=== PATIENT | female | born 1990 | race Caucasian/White ===

== ENCOUNTER 2018-06-19 15:55 | Emergency (ER) | payer OTHER, SELFPAY ==
[2018-06-19 16:13] VITALS: BP 140/82; PULSE 108; RESP 16; TEMP 36.9; O2SAT 100; BMI 33.2
[2018-06-19 17:07] LABS: Influenza A and B by PCR Rapid Negative (Negative)
--- NOTE | 2018-06-19 17:19 | ED_ITS ---
HPI - Headache <KELLY Perez - Last Filed: 06/19/18 21:45> General Chief Complaint: Headache Stated Complaint: Nausea and Vomiting x2 days,Migraine Time Seen by Provider: 06/19/18 17:10 Source: patient Mode of arrival: ambulatory Limitations: no limitations History of Present Illness HPI Narrative: 27-year-old female with history of migraine headaches as an everyday smoker here for complaint of headache she reports she has had for last several years as chronic. She reports having a exacerbated headache over the past several days after trying a new medication that was prescribed for her for her headache. She denies any head trauma. No fevers or chills. Positive nausea. No vomiting. She is tolerating p.o. intake well. She has photophobia. She states this is typical for her migraine headache. No for a. No other concerns or complaints. MD Complaint: headache and migraine Related Data Home Medications Medication Instructions Recorded Confirmed gabapentin 300 mg capsule 300 mg PO TID 06/16/18 06/16/18 oxycodone 5 mg capsule 5 mg PO Q4-6H PRN 06/16/18 06/16/18 Previous Rx's Medication Instructions Recorded Disabled Parking Permit u #1 06/12/16 norethindrone ac-eth estradiol 1 tab PO Q DAY #3 pac 06/11/17 [Loestrin 1.5/30 (21)] beclomethasone dipropionate [Qvar] 2 puff INH BID #1 inh 07/26/17 fremanezumab-vfrm 225 mg/1.5 mL 225 mg SUBCUT QMONTH #1.5 ml 06/16/18 subcutaneous syringe ondansetron 4 mg PO BID-TID PRN #15 tab 06/19/18 Allergies Allergy/AdvReac Type Severity Reaction Status Date / Time buspirone [BUSPIRONE] Allergy Mild RASH ON Verified 06/19/18 16:13 FACE lamotrigine [LAMOTRIGINE] Allergy Mild RASH ON Verified 06/19/18 16:13 FACE morphine [MORPHINE] Allergy Mild HIVES,ITCHI Verified 06/19/18 16:13 NG bupropion [From WELLBUTRIN] Allergy Unknown Verified 06/19/18 16:13 hydrocodone [HYDROCODONE] AdvReac Unknown ABD PAIN Verified 06/19/18 16:13 Review of Systems <KELLY Perez - Last Filed: 06/19/18 21:45> Constitutional Denies chills, Denies fever(s), Denies lethargy and Denies weakness Eyes Denies change in vision, Denies eye discharge, Denies irritation and Denies loss of vision ENT Ears, Nose, Mouth, and Throat: Denies change in voice, Denies neck pain and Denies sore throat Cardiovascular Denies chest pain, Denies irregular heart rhythm, Denies lightheadedness, Denies palpitations, Denies dyspnea, Denies dyspnea on exertion and Denies orthopnea Respiratory Denies cough, Denies dyspnea, Denies dyspnea on exertion and Denies wheezing Gastrointestinal Gastrointestinal: Denies abdominal pain, Denies change in bowel habits, Denies diarrhea, Denies nausea and Denies vomiting Genitourinary Denies hematuria, Denies flank pain, Denies urinary incontinence and Denies urinary urgency Musculoskeletal Denies neck pain Integumentary/Breasts Denies pruritus, Denies erythema, Denies rash and Denies wounds Neurologic Denies confusion, Denies loss of vision and Denies weakness Comments: Migraine headache Psychiatric Denies anxiety, Denies confusion, Denies depression, Denies homicidal ideation and Denies suicidal ideation Endocrine Denies palpitations Hematologic/Lymphatic Denies easy bruising Allergic/Immunologic Denies wheezing PFSH <KELLY Perez - Last Filed: 06/19/18 21:45> Medical History ADHD (attention deficit hyperactivity disorder) (Chronic) Bipolar disorder (Chronic) Migraines (Chronic) Neck pain on right side (Chronic 2010) PTSD (post-traumatic stress disorder) (Chronic) Shoulder pain (Chronic 2010) Closed head injury with concussion (Resolved 2015) Pseudoseizures (Resolved 2012) Substance abuse (Resolved) Family History Mother MS (multiple sclerosis) Social History Smoking Status: Current every day smoker Family History Mother MS (multiple sclerosis) Social History Smoking Status: Current every day smoker Exam <KELLY Perez - Last Filed: 06/19/18 21:45> Initial Vital Signs Initial Vital Signs: Vital Signs Temperature 98.5 F 06/19/18 16:13 Pulse Rate 108 H 06/19/18 16:13 Respiratory Rate 16 06/19/18 16:13 Blood Pressure 140/82 06/19/18 16:13 Pulse Oximetry 100 06/19/18 16:13 Const General: cooperative and well developed Nutritional Appearance: well nourished Orientation: alert, awake, oriented x3 and not confused HENMT Head: normal to inspection and normocephalic Mouth: oral mucosae normal and moist mucous membranes Eyes General: appearance normal, both eyes and all related structures Eyelids: eyelids normal Conjunctivae: conjunctivae normal Sclera: sclerae normal Pupils: PERRL EOM: EOM intact bilaterally Neck Neck: normal visual inspection, trachea midline, No lymphadenopathy, No midline deformity and No JVD Lymphatic: No lymphedema Resp Effort & Inspection: normal respiratory effort, able to speak in complete se ntences, no respiratory distress and no use of accessory muscles Auscultation: clear to auscultation bilaterally, no rales, no rhonchi and no wheezes Cardio Rate: regular rate Rhythm: regular rhythm Heart Sounds: no click, no gallops, no murmurs and no rubs Pulses: normal peripheral pulses <Cash Leiva DO - Last Filed: 06/20/18 20:21> Initial Vital Signs Initial Vital Signs: Vital Signs Temperature 98.5 F 06/19/18 16:13 Pulse Rate 108 H 06/19/18 16:13 Respiratory Rate 16 06/19/18 16:13 Blood Pressure 140/82 06/19/18 16:13 Pulse Oximetry 100 06/19/18 16:13 Course <KELLY Perez - Last Filed: 06/19/18 21:45> Orders Ordered: Discontinued Medications Diphenhydramine HCl (Benadryl) 25 mg IV NOW ONE Stop: 06/19/18 17:27 Last Admin: 06/19/18 17:41 Dose: 25 mg Hydromorphone HCl (Dilaudid) 1 mg IV NOW ONE Stop: 06/19/18 17:27 Last Admin: 06/19/18 17:41 Dose: 1 mg Prochlorperazine (Compazine) 10 mg IV NOW ONE Stop: 06/19/18 17:27 Last Admin: 06/19/18 17:41 Dose: 10 mg Vital Signs - 8 hr 06/19/18 16:13 06/19/18 18:28 Temperature 98.5 F 97.7 F Pulse Rate 108 H 95 H Respiratory Rate 16 18 Blood Pressure 140/82 Blood Pressure [Left Arm] 131/76 Pulse Oximetry 100 100 <Cash Leiva DO - Last Filed: 06/20/18 20:21> Orders Ordered: Discontinued Medications Diphenhydramine HCl (Benadryl) 25 mg IV NOW ONE Stop: 06/19/18 17:27 Last Admin: 06/19/18 17:41 Dose: 25 mg Hydromorphone HCl (Dilaudid) 1 mg IV NOW ONE Stop: 06/19/18 17:27 Last Admin: 06/19/18 17:41 Dose: 1 mg Prochlorperazine (Compazine) 10 mg IV NOW ONE Stop: 06/19/18 17:27 Last Admin: 06/19/18 17:41 Dose: 10 mg Vital Signs - 8 hr 06/19/18 16:13 06/19/18 18:28 Temperature 98.5 F 97.7 F Pulse Rate 108 H 95 H Respiratory Rate 16 18 Blood Pressure 140/82 Blood Pressure [Left Arm] 131/76 Pulse Oximetry 100 100 MDM - Headache <KELLY Perez - Last Filed: 06/19/18 21:45> Lab Data Lab Results 06/19/18 Range/Units 16:17 Influenza A & B (PCR) Negative (Negative) MDM Narrative Medical decision making narrative: Signs and symptoms presents as a migraine headache for her. She states that the normal cocktail for her is Compazine Benadryl and Dilaudid. She states that Toradol does not work for her. She was given this cocktail and it reduced her headache. She is he released home to quiet environment for plenty of fluids and rest. Follow up with primary care provider and pain clinic for re-evaluation. She requests refill of some Zofran as well this is given. For any worsening symptoms return emergency room. <Cash Leiva DO - Last Filed: 06/20/18 20:21> Lab Data Lab Results 06/19/18 Range/Units 16:17 Influenza A & B (PCR) Negative (Negative) Discharge Plan Departure Patient Disposition: Home Clinical Impression: Migraine Discharge Date/Time: 06/19/18 18:45 Interventions: ED Discharge Assessment Last Done: 06/19/18 18:43 Instructions: DI for Migraine Activity Restrictions/Additional Instructions: Signs and symptoms presents as exacerbation of migraine headache. Headache is now better after medications. Home to quiet environment plenty of fluids. The refill is Zofran as prescribed use as needed for any nausea. Follow up with primary care provider. Follow up with pain clinic for any worsening symptoms return to the emergency room. Prescriptions: New ondansetron 4 mg tablet,disintegrating 4 mg PO BID-TID PRN (Reason: nausea and vomiting) Qty: 15 RF: 0 No Action Disabled Parking Permit Qty: 1 RF: 0 norethindrone ac-eth estradiol [Loestrin 1.5/30 (21)] 1.5 MG/30 MCG tablet 1 tab PO Q DAY Qty: 3 RF: 4 beclomethasone dipropionate [Qvar] 40 MCG/PUFF aerosol 2 puff INH BID Qty: 1 RF: 0 gabapentin 300 mg capsule 300 mg PO TID RF: 0 oxycodone 5 mg capsule 5 mg PO Q4-6H PRNRF: 0 Ajovy 225 mg/1.5 mL syringe 225 mg SUBCUT QMONTH Qty: 1.5 RF: 11 Referrals: Valeri Jenkins MD [Primary Care Provider] - Stand Alone Forms: Work Release Note <Cash Leiva DO - Last Filed: 06/20/18 20:21> Cosign ED Attending Marielyature Attestation: I was available for consultation during this patient's emergency department encounter
[2018-06-19] MEDS: HYDROMORPHONE 1 MG INJ IV (17:41)
[2018-06-19] MEDS: diphenhydrAMINE 50 MG/ML VIAL 25 MG IV (17:41)
[2018-06-19] MEDS: PROCHLORPERAZINE 10 MG/2 ML VIAL IV (17:41)
[2018-06-19 18:28] VITALS: BP 131/76; PULSE 95; RESP 18; TEMP 36.5; O2SAT 100
== END 2018-06-19 18:45 | disposition home or self-care (01) ==
PROVIDERS: Emergency Medicine; Emergency Provider Nurse Practitioner Family; PCP Family Medicine
DX: G43.909 Migraine, unspecified, not intractable, without status migrainosus (principal)
CPT/HCPCS: 87400; 96374; 96375; 99282; 99284; J0780; J1170; J1200

== ENCOUNTER 2018-07-16 15:12 | Emergency (ER) | payer OTHER, SELFPAY ==
[2018-07-16 15:18] VITALS: BP 140/76; PULSE 105; RESP 20; TEMP 36.4; O2SAT 100; BMI 34.0
--- NOTE | 2018-07-16 16:44 | ED_ITS ---
HPI - Headache General Chief Complaint: Headache Stated Complaint: MIGRAINE HEADACHE FOR 11 DAYS Time Seen by Provider: 07/16/18 16:20 Source: patient Mode of arrival: ambulatory Limitations: no limitations History of Present Illness HPI Narrative: Patient presents the emergency department complaining of right- sided headache, nausea, and vomiting for the last 11 days. Patient denies fevers. She does state that she had flu like illness and a cold that lasted until about 5 days ago, and states that she believes this triggered her migraine. Patient has a longstanding history of migraines, and sees a specialist for this. She states that she saw her doctor several days ago and was given an injection of something like Imitrex, but this did not help. Patient denies any recent head injuries. She states that the symptoms are consistent with prior migraines, and that there is nothing different this time, other than the symptoms have been more difficult to get rid of. Related Data Home Medications Medication Instructions Recorded Confirmed gabapentin 300 mg capsule 300 mg PO TID 06/16/18 07/14/18 oxycodone 5 mg capsule 5 mg PO Q4-6H PRN 06/16/18 07/14/18 Previous Rx's Medication Instructions Recorded Disabled Parking Permit u #1 06/12/16 norethindrone ac-eth estradiol 1 tab PO Q DAY #3 pac 06/11/17 [Loestrin 1.5/30 (21)] beclomethasone dipropionate [Qvar] 2 puff INH BID #1 inh 07/26/17 fremanezumab-vfrm 225 mg/1.5 mL 225 mg SUBCUT QMONTH #1.5 ml 06/16/18 subcutaneous syringe ondansetron 4 mg PO BID-TID PRN #15 tab 06/19/18 ondansetron 4 mg disintegrating 4 mg PO .COMPLEX PRN 1 Days #30 tab 07/14/18 tablet sumatriptan 100 mg tablet 100 mg PO ONCE #10 tab 07/14/18 verapamil 40 mg tablet 40 mg PO ONCE #90 tab 07/14/18 Allergies Allergy/AdvReac Type Severity Reaction Status Date / Time buspirone [BUSPIRONE] Allergy Mild RASH ON Verified 07/14/18 16:03 FACE lamotrigine [LAMOTRIGINE] Allergy Mild RASH ON Verified 07/14/18 16:03 FACE morphine [MORPHINE] Allergy Mild HIVES,ITCHI Verified 07/14/18 16:03 NG bupropion [From WELLBUTRIN] Allergy Unknown Verified 07/14/18 16:03 hydrocodone [HYDROCODONE] AdvReac Unknown ABD PAIN Verified 07/14/18 16:03 Review of Systems Constitutional Denies chills, Denies fever(s), Reports headache(s), Denies lethargy and Denies weakness Eyes Denies change in vision, Denies eye discharge, Denies irritation, Denies loss of vision and Reports photophobia ENT Ears, Nose, Mouth, and Throat: Denies change in voice, Reports headache(s), Denies neck pain and Denies sore throat Cardiovascular Denies chest pain, Denies irregular heart rhythm, Denies lightheadedness, Denies palpitations, Denies dyspnea, Denies dyspnea on exertion and Denies orthopnea Respiratory Denies cough, Denies dyspnea, Denies dyspnea on exertion and Denies wheezing Gastrointestinal Gastrointestinal: Denies abdominal pain, Denies change in bowel habits, Denies diarrhea, Reports nausea and Reports vomiting Genitourinary Denies hematuria, Denies flank pain, Denies urinary incontinence and Denies urinary urgency Musculoskeletal Denies neck pain Integumentary/Breasts Denies pruritus, Denies erythema, Denies rash and Denies wounds Neurologic Denies confusion, Reports headache(s), Denies loss of vision and Denies weakness Psychiatric Denies anxiety, Denies confusion, Denies depression, Denies homicidal ideation and Denies suicidal ideation Endocrine Denies palpitations Hematologic/Lymphatic Denies easy bruising Allergic/Immunologic Denies wheezing [facility] Medical History Migraines (Chronic) ADHD (attention deficit hyperactivity disorder) (Chronic) Bipolar disorder (Chronic) Neck pain on right side (Chronic 2010) PTSD (post-traumatic stress disorder) (Chronic) Shoulder pain (Chronic 2010) Closed head injury with concussion (Resolved 2015) Pseudoseizures (Resolved 2012) Substance abuse (Resolved) Family History (Updated 12/23/17 @ 08:36 by Tracey Thomas) Mother MS (multiple sclerosis) Social History Smoking Status: Current every day smoker Family History Mother MS (multiple sclerosis) Social History Smoking Status: Current every day smoker Exam Initial Vital Signs Initial Vital Signs: Vital Signs Temperature 97.6 F 07/16/18 15:18 Pulse Rate 105 H 07/16/18 15:18 Respiratory Rate 20 07/16/18 15:18 Blood Pressure 140/76 07/16/18 15:18 Pulse Oximetry 100 07/16/18 15:18 Const General: cooperative and well developed Nutritional Appearance: well nourished Orientation: alert, awake, oriented x3 and not confused Other: Patient is sitting on the stretcher, wearing sunglasses. HENVT Head: normocephalic and atraumatic Ears: external ears normal Nose: external nose normal and No nasal discharge Face and sinus: face symmetric and No dry mucous membranes Mouth: oral mucosae normal and moist mucous membranes Teeth and gingiva: dentition normal Eyes General: appearance normal, both eyes and all related structures Eyelids: eyelids normal Conjunctivae: conjunctivae normal Sclera: sclerae normal Pupils: PERRL EOM: EOM intact bilaterally Neck Neck: normal visual inspection, trachea midline, No lymphadenopathy, No midline deformity and No JVD Lymphatic: No lymphedema Chest Chest: normal inspection of the chest Resp Effort & Inspection: normal respiratory effort, able to speak in complete sentences, no respiratory distress and no use of accessory muscles Auscultation: clear to auscultation bilaterally, no rales, no rhonchi and no wheezes Cardio Rate: regular rate Rhythm: regular rhythm Heart Sounds: no click, no gallops, no murmurs and no rubs Pulses: normal peripheral pulses GI Inspection: non-distended Palpation: soft, no hepatosplenomegaly, No guarding, No pulsatile mass and No tender Auscultation: normal bowel sounds Back/Spine/Pelvis Back: No CVA tenderness Cervical Spine: cervical ROM normal and No pain with cervical ROM Thoracic/Lumbar Spine: thoracic and lumbar spine normal to inspection Skin General: no rashes or lesions noted, No jaundice and No petechiae Neuro General: alert, oriented x3, gait normal and no focal motor deficits Speech: speech normal Extrem General: full ROM, no clubbing, cyanosis or edema, no pedal edema and no calf tenderness Psych Appearance: well kempt Mental Status: mental status grossly normal Attitude: cooperative Thought Content: normal and suicidality Judgment: judgment good Course Course Narrative: Patient was treated symptomatically with IV fluids, Compazine, Benadryl, and Toradol. Patient stated that this had not really helped her pain, and that she usually requires Dilaudid when she has this bad of an exacerbation. Patient was given Dilaudid in the emergency department which did improve her symptoms. The patient did not have any symptoms that were concerning for a worse pathology underlying, and she had stated that her current symptoms were consistent with prior migraines. As such, I did not feel any further workup was indicated in the emergency department. We have discussed the usual indications for return, as well as symptomatic management for home. Patient is also advised to follow up with her migraine specialist. Orders Ordered: Discontinued Medications Diphenhydramine HCl (Benadryl) 12.5 mg IV NOW ONE Stop: 07/16/18 16:34 Last Admin: 07/16/18 16:50 Dose: 12.5 mg Hydromorphone HCl (Dilaudid) 1 mg IV NOW ONE Stop: 07/16/18 18:00 Last Admin: 07/16/18 18:26 Dose: 1 mg Sodium Chloride (Normal Saline 0.9%) 1,000 mls @ 1,000 mls/hr IV BOLUS ONE Stop: 07/16/18 17:32 Last Infusion: 07/16/18 18:28 Dose: 0 mls/hr Admin: 07/16/18 16:50 Dose: 1,000 mls/hr Ketorolac Tromethamine (Toradol) 30 mg IV NOW ONE Stop: 07/16/18 16:34 Last Admin: 07/16/18 16:46 Dose: 30 mg Prochlorperazine (Compazine) 10 mg IV NOW ONE Stop: 07/16/18 16:34 Last Admin: 07/16/18 16:46 Dose: 10 mg Vital Signs - 8 hr 07/16/18 15:18 07/16/18 16:46 07/16/18 18:29 Temperature 97.6 F Pulse Rate 105 H 86 77 Respiratory Rate 20 16 Blood Pressure 140/76 137/90 Blood Pressure [Left Arm] 133/79 Pulse Oximetry 100 99 MDM - Headache Medical Records Attestation: I reviewed the patient's medical records. Discharge Plan Departure Patient Disposition: Home Clinical Impression: Migraine Qualifiers: Migraine type: unspecified Status migrainosus presence: without status migrainosus Intractability: not intractable Qualified Code(s): G43.909 - Migraine, unspecified, not intractable, without status migrainosus Instructions: DI for Migraine Prescriptions: No Action Disabled Parking Permit Qty: 1 RF: 0 norethindrone ac-eth estradiol [Loestrin 1.5/30 (21)] 1.5 MG/30 MCG tablet 1 tab PO Q DAY Qty: 3 RF: 4 beclomethasone dipropionate [Qvar] 40 MCG/PUFF aerosol 2 puff INH BID Qty: 1 RF: 0 ondansetron 4 mg tablet,disintegrating 4 mg PO BID-TID PRN (Reason: nausea and vomiting) Qty: 15 RF: 0 gabapentin 300 mg capsule 300 mg PO TID RF: 0 oxycodone 5 mg capsule 5 mg PO Q4-6H PRNRF: 0 Ajovy 225 mg/1.5 mL syringe 225 mg SUBCUT QMONTH Qty: 1.5 RF: 11 ondansetron 4 mg tablet,disintegrating 4 mg PO .COMPLEX PRN (Reason: nausea and vomiting) 1 Days Qty: 30 RF: 2 verapamil 40 mg tablet 40 mg PO ONCE Qty: 90 RF: 2 sumatriptan succinate 100 mg tablet 100 mg PO ONCE Qty: 10 RF: 1 Referrals: Valeri Jenkins MD [Primary Care Provider] -
[2018-07-16 16:46] VITALS: BP 137/90; PULSE 86
[2018-07-16] MEDS: PROCHLORPERAZINE 10 MG/2 ML VIAL IV (16:46)
[2018-07-16] MEDS: KETOROLAC 60 MG/2 ML VIAL 30 MG IV (16:46)
[2018-07-16] MEDS: diphenhydrAMINE 50 MG/ML VIAL 12.5 MG IV (16:50)
[2018-07-16] MEDS: SODIUM CHLORIDE 0.9% 1,000 ML 1000 ML IV (16:50)
[2018-07-16] MEDS: HYDROMORPHONE 1 MG INJ IV ×2 (18:26→18:59)
[2018-07-16 18:29] VITALS: BP 133/79; PULSE 77; RESP 16; O2SAT 99
[2018-07-16 19:06] VITALS: BP 135/81
== END 2018-07-16 19:20 | disposition home or self-care (01) ==
PROVIDERS: Emergency Provider Emergency Medicine; Family Provider Family Medicine; PCP Family Medicine; Referring Provider Family Medicine
DX: G43.909 Migraine, unspecified, not intractable, without status migrainosus (principal); R11.2 Nausea with vomiting, unspecified
CPT/HCPCS: 36591; 96361; 96374; 96375; 96376; 99283; 99284; J0780; J1170; J1200; J1885

== ENCOUNTER → 2018-07-22 19:12 | Outpatient (CLI) | payer OTHER, SELFPAY ==
--- NOTE | 2018-07-22 19:14 | DI.MRI.S_ITS ---
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 TECHNIQUE: Noncontrast axial T1 spin echo, axial T2 fast spin echo, sagittal and axial FLAIR, coronal T2 fast spin echo, axial gradient echo, axial diffusion and ADC through the brain. COMPARISON: None. FINDINGS: Image quality: Excellent. CSF Spaces: Basal cisterns are patent. No extra-axial fluid collections. Ventricles are normal in size and shape. Brain: No intracranial masses or hemorrhage. Gauthier/white matter interface is normal. Brainstem appears normal. Diffusion-weighted images demonstrate no acute ischemic insult. No chronic ischemic insults. Normal intravascular flow voids are present. Skull and face: Calvarium has normal marrow signal. Orbits appear normal. Sinuses: Sinuses and mastoids are abnormal with mild mucosal thickening involving the sphenoid sinus and moderate to moderately severe mucosal thickening involving the maxillary sinuses bilaterally and to a slightly lesser degree the ethmoid air cells and the frontal sinuses, right greater than left. IMPRESSION: No benign parenchymal abnormality seen, no vascular abnormality found. Pansinusitis as discussed without air-fluid level. Dictated by: Efra Anders M.D. on 07/23/2018 at 8:07 Approved by: Efra Anders M.D. on 07/23/2018 at 8:08
== END ==
PROVIDERS: Family Provider Family Medicine; PCP Family Medicine; Visit Provider Family Medicine
DX: G43.709 Chronic migraine without aura, not intractable, without status migrainosus (principal); J32.4 Chronic pansinusitis
CPT/HCPCS: 70551

== ENCOUNTER → 2018-07-23 10:01 | Oncology outpatient (ONC) | payer OTHER, SELFPAY ==
[2018-07-23 11:03] VITALS: BP 108/69; PULSE 90; RESP 16; TEMP 36.6; O2SAT 99
[2018-07-23] MEDS: ONDANSETRON 8 MG in SODIUM CHLORIDE 0.9% 50 ML 216 ML IV (11:33)
[2018-07-23] MEDS: VALPROIC ACID IV (12:05)
[2018-07-23] MEDS: [UNRECOGNIZED DRUG - OTHER] IV (12:05)
[2018-07-23] MEDS: DIHYDROERGOTAMINE IV (12:05)
[2018-07-23] MEDS: MAGNESIUM SULFATE IV (12:05)
== END ==
PROVIDERS: Family Provider Family Medicine; PCP Family Medicine; Visit Provider Family Medicine
DX: G43.711 Chronic migraine without aura, intractable, with status migrainosus (principal); E86.9 Volume depletion, unspecified; R11.2 Nausea with vomiting, unspecified
CPT/HCPCS: 96365; 96366; 96375; J1110; J2405; J3475

== ENCOUNTER 2018-08-14 20:52 | Emergency (ER) | payer OTHER, SELFPAY ==
[2018-08-14 21:16] VITALS: BP 146/105; PULSE 100; RESP 20; TEMP 36.6; O2SAT 100; BMI 34.0
--- NOTE | 2018-08-14 22:58 | ED_ITS ---
HPI - Headache General Chief Complaint: Headache Stated Complaint: DAY 47 OF MIGRAINE Time Seen by Provider: 08/14/18 21:53 Source: patient and family Mode of arrival: ambulatory Limitations: no limitations History of Present Illness HPI Narrative: 27F daily smoker with severe history of migraines presents with a chronic migraine on day 47. She is under the care of local headache physicians and has received Imitrex and various other medications. Her pain is persistent and there is even talk about possible admission but her headache specialist is currently out of town. She denies any fever chills. She has had no injuries. She is not dizzy or weak or lightheaded. She denies numbness, tingling or weakness. Her headache is global and worsened by bright lights and loud noise. MD Complaint: headache and migraine Onset (ago): week(s) Onset description: gradual Location: diffuse Severity: moderate Quality: aching and throbbing Relieving factors: nothing Exacerbating factors: light and noise Associated symptoms: none Related Data Previous Rx's Medication Instructions Recorded norethindrone ac-eth estradiol 1 tab PO Q DAY #3 pac 06/11/17 [Loestrin 1.5/30 (21)] beclomethasone dipropionate [Qvar] 2 puff INH BID #1 inh 07/26/17 fremanezumab-vfrm 225 mg/1.5 mL 225 mg SUBCUT QMONTH #1.5 ml 06/16/18 subcutaneous syringe ondansetron 4 mg PO BID-TID PRN #15 tab 06/19/18 oxycodone 5 mg tablet,oral ONLY 5 mg PO Q6H PRN #30 each 07/29/18 (not feeding tubes) prednisone 10 mg tablet 10 mg PO DAILY #40 tab 07/29/18 sumatriptan 100 mg tablet 100 mg PO ONCE #20 tab 07/29/18 sumatriptan 6 mg/0.5 mL 6 mg SUBCUT ONCE #2.5 ml 07/29/18 subcutaneous solution Allergies Allergy/AdvReac Type Severity Reaction Status Date / Time buspirone [BUSPIRONE] Allergy Mild RASH ON Verified 08/06/18 14:41 FACE lamotrigine [LAMOTRIGINE] Allergy Mild RASH ON Verified 08/06/18 14:41 FACE morphine [MORPHINE] Allergy Mild HIVES,ITCHI Verified 08/06/18 14:41 NG bupropion [From WELLBUTRIN] Allergy Unknown Verified 08/06/18 14:41 hydrocodone [HYDROCODONE] AdvReac Unknown ABD PAIN Verified 08/06/18 14:41 Review of Systems Review of Systems ROS Unobtainable: All systems reviewed & are unremarkable except as noted in HPI and below Constitutional Denies chills, Denies fever(s), Reports headache(s), Denies lethargy and Denies weakness Eyes Denies change in vision, Denies eye discharge, Denies irritation and Denies loss of vision ENT Ears, Nose, Mouth, and Throat: Denies change in voice, Reports headache(s), Denies neck pain and Denies sore throat Cardiovascular Denies chest pain, Denies irregular heart rhythm, Denies lightheadedness, Denies palpitations, Denies dyspnea, Denies dyspnea on exertion and Denies orthopnea Respiratory Denies cough, Denies dyspnea, Denies dyspnea on exertion and Denies wheezing Gastrointestinal Gastrointestinal: Denies abdominal pain, Denies change in bowel habits, Denies diarrhea, Denies nausea and Denies vomiting Genitourinary Denies hematuria, Denies flank pain, Denies urinary incontinence and Denies urinary urgency Musculoskeletal Denies neck pain Integumentary/Breasts Denies pruritus, Denies erythema, Denies rash and Denies wounds Neurologic Denies confusion, Reports headache(s), Denies loss of vision and Denies weakness Psychiatric Denies anxiety, Denies confusion, Denies depression, Denies homicidal ideation and Denies suicidal ideation Endocrine Denies palpitations Hematologic/Lymphatic Denies easy bruising Allergic/Immunologic Denies wheezing [facility] Medical History ADHD (attention deficit hyperactivity disorder) (Chronic) Bipolar disorder (Chronic) Migraines (Chronic) Neck pain on right side (Chronic 2010) PTSD (post-traumatic stress disorder) (Chronic) Shoulder pain (Chronic 2010) Closed head injury with concussion (Resolved 2015) Pseudoseizures (Resolved 2012) Substance abuse (Resolved) Family History Mother MS (multiple sclerosis) Social History Smoking Status: Current every day smoker Family History Mother MS (multiple sclerosis) Social History Smoking Status: Current every day smoker Exam Narrative Exam Narrative: GENERAL: 27-year-old female obviously uncomfortable, resting in a dark room HEAD: Atraumatic. Normocephalic. No temporal or scalp tenderness. EYES: Pupils equal round and reactive. Extraocular motions intact. No scleral icterus. No injection or drainage. ENT: Nose without bleeding, purulent drainage or septal hematoma. Throat without erythema, tonsillar hypertrophy or exudate. Uvula midline. Airway patent. NECK: Trachea midline. No JVD or lymphadenopathy. Supple, nontender, no meningeal signs. CARDIOVASCULAR: Regular rate and rhythm without murmurs, gallops, or rubs. RESPIRATORY: Clear to auscultation. Breath sounds equal bilaterally. No wheezes, rales, or rhonchi. GASTROINTESTINAL: Abdomen soft, non-tender, nondistended. No hepato- splenomegaly, or palpable masses. No guarding. EXTREMITIES: No clubbing, cyanosis, or edema. No joint tenderness, effusion, or edema noted. BACK: Nontender without deformity or crepitance. No flank tenderness. NEURO: AOx3. SKIN: No rash or erythema. Initial Vital Signs Initial Vital Signs: Vital Signs Temperature 98 F 08/14/18 21:16 Pulse Rate 100 H 08/14/18 21:16 Respiratory Rate 20 08/14/18 21:16 Blood Pressure 146/105 H 08/14/18 21:16 Pulse Oximetry 100 08/14/18 21:16 Course Orders Ordered: Discontinued Medications Diphenhydramine HCl (Benadryl) 25 mg IV NOW ONE Stop: 08/14/18 23:41 Last Admin: 08/14/18 23:47 Dose: 25 mg Hydromorphone HCl (Dilaudid) 1 mg IV NOW ONE Stop: 08/14/18 23:41 Last Admin: 08/14/18 23:48 Dose: 1 mg Prochlorperazine (Compazine) 10 mg IV NOW ONE Stop: 08/14/18 23:41 Last Admin: 08/14/18 23:48 Dose: 10 mg Reevaluation(s) Reevaluation #1: Patient feels much better after the above-stated therapies and is requesting discharge Vital Signs - 8 hr 08/15/18 00:20 Temperature 98.4 F Pulse Rate 82 Respiratory Rate 17 Blood Pressure 132/80 Pulse Oximetry 100 Discharge Plan Departure Patient Disposition: Home Clinical Impression: Migraine Qualifiers: Migraine type: unspecified Status migrainosus presence: without status migrainosus Intractability: not intractable Qualified Code(s): G43.909 - Migraine, unspecified, not intractable, without status migrainosus Discharge Date/Time: 08/15/18 00:22 Interventions: ED Discharge Assessment Last Done: 08/15/18 00:20 Instructions: DI for Headache Activity Restrictions/Additional Instructions: *You have been diagnosed with [migraine headache] *What to do: * continue to take medications as directed *Follow up with your primary care provider in 2-3 days, call for an appointment. Let them know you were seen in the Emergency Department and that we ask that you be seen in follow up *Return to ER if you should have any new, worsening or concerning symptoms Prescriptions: No Action norethindrone ac-eth estradiol [Loestrin .09/11 ()] 1.5 MG/30 MCG tablet 1 tab PO Q DAY Qty: 3 RF: 4 beclomethasone dipropionate [Qvar] 40 MCG/PUFF aerosol 2 puff INH BID Qty: 1 RF: 0 ondansetron 4 mg tablet,disintegrating 4 mg PO BID-TID PRN (Reason: nausea and vomiting) Qty: 15 RF: 0 Ajovy 225 mg/1.5 mL syringe 225 mg SUBCUT QMONTH Qty: 1.5 RF: 11 sumatriptan succinate 100 mg tablet 100 mg PO ONCE Qty: 20 RF: 1 prednisone 10 mg tablet 10 mg PO DAILY Qty: 40 RF: 0 oxycodone 5 mg tablet, oral only 5 mg PO Q6H PRN (Reason: pain) Qty: 30 RF: 0 sumatriptan succinate 6 mg/0.5 mL solution 6 mg SUBCUT ONCE Qty: 2.5 RF: 1 Referrals: Valeri Jenkins MD [Primary Care Provider] -
[2018-08-14 23:09] VITALS: BP 138/83; PULSE 84; RESP 17; O2SAT 100
[2018-08-14] MEDS: diphenhydrAMINE 50 MG/ML VIAL 25 MG IV (23:47)
[2018-08-14] MEDS: HYDROMORPHONE 1 MG INJ IV (23:48)
[2018-08-14] MEDS: PROCHLORPERAZINE 10 MG/2 ML VIAL IV (23:48)
[2018-08-15 00:20] VITALS: BP 132/80; PULSE 82; RESP 17; TEMP 36.9; O2SAT 100
== END 2018-08-15 00:22 | disposition home or self-care (01) ==
PROVIDERS: Emergency Provider Emergency Medicine; Family Provider Family Medicine; PCP Family Medicine
DX: G43.909 Migraine, unspecified, not intractable, without status migrainosus (principal)
CPT/HCPCS: 96374; 96375; 99282; 99284; J0780; J1170; J1200

== ENCOUNTER 2018-08-21 12:03 | Emergency (ER) | payer OTHER, SELFPAY ==
[2018-08-21 12:13] VITALS: BP 136/81; PULSE 118; RESP 18; TEMP 36.4; O2SAT 100
--- NOTE | 2018-08-21 12:22 | ED.HA ---
HPI - Headache General Chief Complaint: Headache Stated Complaint: blacked out yesterday, migraines Time Seen by Provider: 08/21/18 12:11 Source: patient and family Mode of arrival: ambulatory Limitations: no limitations History of Present Illness HPI Narrative: 27-year-old female nonsmoker with chronic migraines presents with ongoing trouble. She was seen and evaluated a few days ago and given IV fluids Dilaudid and Compazine and had improvement to the point of requesting discharge. She continues to headaches and has been unable to reach her local headache specialist whom is out of town. She denies any injury nor fever or chills. She has no focal neurologic findings. She has been continuing to take her medications as directed. She is admittedly losing sleep, fatigued very stressed about the situation. Yesterday during a particularly bad episode she had a near syncopal moment with complete resolution. She had prodromal findings and could feel herself getting lightheaded. MD Complaint: headache Onset (ago): day(s) Onset description: gradual Location: diffuse Severity: severe Quality: aching, throbbing and worst headache of life Relieving factors: nothing Exacerbating factors: light and noise Associated symptoms: near syncope Treatments prior to arrival: migraine medication Related Data Home Medications Medication Instructions Recorded Confirmed beclomethasone dipropionate [Qvar 1 puff INHALATION Q12H PRN 08/21/18 08/21/18 RediHaler] ondansetron 4 mg PO BID 08/21/18 08/21/18 sumatriptan succinate 100 mg PO DAILY 08/21/18 08/21/18 verapamil 80 mg PO DAILY 08/21/18 08/21/18 Previous Rx's Medication Instructions Recorded fremanezumab-vfrm 225 mg/1.5 mL 225 mg SUBCUT QMONTH #1.5 ml 06/16/18 subcutaneous syringe oxycodone 5 mg PO Q4-6H PRN #10 tab 08/21/18 Allergies Allergy/AdvReac Type Severity Reaction Status Date / Time buspirone [BUSPIRONE] Allergy Mild RASH ON Verified 08/06/18 14:41 FACE lamotrigine [LAMOTRIGINE] Allergy Mild RASH ON Verified 08/06/18 14:41 FACE morphine [MORPHINE] Allergy Mild HIVES,ITCHI Verified 08/06/18 14:41 NG bupropion [From WELLBUTRIN] Allergy Unknown Verified 08/06/18 14:41 hydrocodone [HYDROCODONE] AdvReac Unknown ABD PAIN Verified 08/06/18 14:41 Review of Systems Constitutional Denies chills, Denies fever(s), Reports headache(s), Denies lethargy and Denies weakness Eyes Denies change in vision, Denies eye discharge, Denies irritation and Denies loss of vision ENT Ears, Nose, Mouth, and Throat: Denies change in voice, Reports headache(s), Denies neck pain and Denies sore throat Cardiovascular Denies chest pain, Denies irregular heart rhythm, Reports lightheadedness, Denies palpitations, Denies dyspnea, Denies dyspnea on exertion and Denies orthopnea Respiratory Denies cough, Denies dyspnea, Denies dyspnea on exertion and Denies wheezing Gastrointestinal Gastrointestinal: Denies abdominal pain, Denies change in bowel habits, Denies diarrhea, Denies nausea and Denies vomiting Genitourinary Denies hematuria, Denies flank pain, Denies urinary incontinence and Denies urinary urgency Musculoskeletal Denies neck pain Integumentary/Breasts Denies pruritus, Denies erythema, Denies rash and Denies wounds Neurologic Denies confusion, Reports headache(s), Denies loss of vision and Denies weakness Psychiatric Denies anxiety, Denies confusion, Denies depression, Denies homicidal ideation and Denies suicidal ideation Endocrine Denies palpitations Hematologic/Lymphatic Denies easy bruising Allergic/Immunologic Denies wheezing [facility] Medical History ADHD (attention deficit hyperactivity disorder) (Chronic) Bipolar disorder (Chronic) Migraines (Chronic) Neck pain on right side (Chronic 2010) PTSD (post-traumatic stress disorder) (Chronic) Shoulder pain (Chronic 2010) Closed head injury with concussion (Resolved 2015) Pseudoseizures (Resolved 2012) Substance abuse (Resolved) Family History Mother MS (multiple sclerosis) Social History Smoking Status: Current every day smoker Family History Mother MS (multiple sclerosis) Social History Smoking Status: Current every day smoker Exam Narrative Exam Narrative: GENERAL: 27-year-old female obviously uncomfortable, sitting in a dark room rubbing her temples HEAD: Atraumatic. Normocephalic. No temporal or scalp tenderness. EYES: Pupils equal round and reactive. Extraocular motions intact. No scleral icterus. No injection or drainage. ENT: Nose without bleeding, purulent drainage or septal hematoma. Throat without erythema, tonsillar hypertrophy or exudate. Uvula midline. Airway patent. NECK: Trachea midline. No JVD or lymphadenopathy. Supple, nontender, no meningeal signs. CARDIOVASCULAR: Regular rate and rhythm without murmurs, gallops, or rubs. RESPIRATORY: Clear to auscultation. Breath sounds equal bilaterally. No wheezes, rales, or rhonchi. GASTROINTESTINAL: Abdomen soft, non-tender, nondistended. No hepato-splenomegaly, or palpable masses. No guarding. EXTREMITIES: No clubbing, cyanosis, or edema. No joint tenderness, effusion, or edema noted. BACK: Nontender without deformity or crepitance. No flank tenderness. NEURO: AOx3. SKIN: No rash or erythema. NIH Stroke Scale 1a. LOC: Patient is alert and keenly responsive (0) 1b. LOC Questions: Patient answers both LOC questions accurately (0) 1c. LOC Commands: Patient performs both tasks correctly (0) 2. Best Gaze: Normal (0) 3. Visual: No visual loss (0) 4. Facial palsy: Normal symmetrical movements (0) 5. Motor arm: No drift (0) 6. Motor leg: No drift (0) 7. Limb ataxia: Absent (0) 8. Sensory: Normal (0) 9. Best language: No aphasia; normal (0) 10. Dysarthria: Normal (0) 11. Extinction and inattention: No abnormality (0) NIHSS: 0 Initial Vital Signs Initial Vital Signs: Vital Signs Temperature 97.6 F 08/21/18 12:13 Pulse Rate 118 H 08/21/18 12:13 Respiratory Rate 18 08/21/18 12:13 Blood Pressure 136/81 08/21/18 12:13 Pulse Oximetry 100 08/21/18 12:13 Course Orders Ordered: ED Orders 08/21/18 12:29 EKG-12 Lead Routine 08/21/18 12:35 Basic Metabolic Panel Stat Complete Blood Count AUTO DIFF Stat Prolactin Stat 08/21/18 12:38 CT head/brain wo con Stat Discontinued Medications Dexamethasone (Decadron) 10 mg IV NOW ONE Stop: 08/21/18 12:30 Last Admin: 08/21/18 12:48 Dose: 10 mg Hydromorphone HCl (Dilaudid) 1 mg IV NOW ONE Stop: 08/21/18 12:30 Last Admin: 08/21/18 12:48 Dose: 1 mg Hydromorphone HCl (Dilaudid) 1 mg IV NOW ONE Stop: 08/21/18 13:54 Last Admin: 08/21/18 14:00 Dose: 1 mg Sodium Chloride (Normal Saline 0.9%) 1,000 mls @ 1,000 mls/hr IV BOLUS ONE Stop: 08/21/18 13:28 Last Infusion: 08/21/18 14:11 Dose: 0 mls/hr Admin: 08/21/18 12:48 Dose: 1,000 mls/hr Ondansetron HCl (Zofran) 4 mg IV NOW ONE Stop: 08/21/18 12:30 Last Admin: 08/21/18 12:48 Dose: 4 mg Reevaluation(s) Reevaluation #1: Patient is feeling significant improvement over the above-stated complaints with Dilaudid and Zofran. Vital Signs - 8 hr 08/21/18 12:13 08/21/18 14:12 Temperature 97.6 F Pulse Rate 118 H 89 Respiratory Rate 18 16 Blood Pressure 136/81 123/71 Pulse Oximetry 100 99 MDM - Headache Lab Data Result diagrams: 08/21/18 12:35 08/21/18 12:35 Lab Results 08/21/18 08/21/18 Range/Units 12:35 12:35 WBC 10.6 (4.5-11.0) X10^3/uL RBC 3.59 L (4.0-5.2) X10^6/uL Hgb 11.0 L (12.0-16.0) g/dL Hct 33.5 L (36-46) % MCV 93.3 (80-100) fL MCH 30.5 (26-34) PG MCHC 32.7 (30-36) % RDW 15.6 H (11.6-14.8) % Plt Count 225 (150-400) X10^3/uL Neut % (Auto) 67.0 (50-75) % Lymph % (Auto) 25.4 (25-40) % Toole % (Auto) 5.5 (3-14) % Eos % (Auto) 1.5 L (2-4) % Baso % (Auto) 0.6 (0-2) % Neut # (Auto) 7100 H (6951-0121) /uL Lymph # (Auto) 2700 (9874-4537) /uL Toole # (Auto) 600 (0-900) /uL Eos # (Auto) 200 (0-450) /uL Baso # (Auto) 100 (0-100) /uL Sodium 140 (137-145) mmol/L Potassium 3.8 (3.4-5.1) mmol/L Chloride 108 H (98-107) mmol/L Carbon Dioxide 25 (22-32) mmol/L BUN 10 (7-17) mg/dL Creatinine 0.60 (0.52-1.04) mg/dL Estimated GFR > 60.0 (>60) mL/min BUN/Creatinine Ratio 16.7 (6-22) Glucose 74 (70-100) mg/dL Calcium 8.7 (8.4-10.2) mg/dL Prolactin 34.9 H (3.0-18.6) ng/mL Imaging Data CT scan - head: Radiologist's impression: Chart Viewer Diagnostics DATE TYPE STATUS AUTHOR Hx 08/21/18 12:38 Freedom Brandon 07/22/18 19:14 Efra Anders 04/28/18 00:00 [facility] - US Pelvic & CT Pelvic 04/25/18 09:05 [facility], Abdomen US 12/24/17 09:00 [facility], US pelvis 10/27/17 14:38 Xray - Chest 2 View 09/11/17 10:42 [facility], Cervical Spine XR Anastasiya Vizcarra 1990 [facility] ER, ED.LOC - Main ED 113.852kg Headache Search Chart RASH ON FACE RASH ON FACE HIVES,ITCHING ABD PAIN ONSET 09/10/13 09/10/13 Today 14:12 Anastasiya Vizcarar 27 F [address] [address] [address] Scan Report Signed Patient: Anastasiya Vizcarra [facility]#: [id number] : 1990Acct:[id number] Age/Sex: 27 / FDate of Service: 08/21/18 Loc: ED Accession Number: [id number] Procedure: CT head/brain wo con Ordering Provider: Nathaniel Tristan D.O. PROCEDURE: CT HEAD/BRAIN WO CON INDICATIONS: worst headache, syncope TECHNIQUE: Noncontrast 4.5 mm thick angled axial sections acquired from the foramen magnum to the vertex, with coronal and sagittal reformats. For radiation dose reduction, the following was used: automated exposure control, adjustment of mA and/or kV according to patient size. COMPARISON: [facility], CT, CT HEAD WITHOUT CONTRAST, 09/24/2017, 15:31. [facility], CT, HEAD WITHOUT CONTRAST, 07/21/2016, 12:24. [facility], CT, HEAD WITHOUT CONTRAST, 05/10/2016, 12:48. [facility], CT, HEAD WITHOUT CONTRAST, 08/19/2015, 10:21. FINDINGS: Image quality: Excellent. CSF spaces: Basal cisterns are patent. No extra-axial fluid collections. Ventricles are normal in size and shape. Cavum septum hernia is present. Brain: No midline shift. No intracranial masses or hemorrhage. Gauthier-white matter interface is normal. Skull and face: Calvarium and visualized facial bones are intact, without suspicious lesions. Sinuses: Visualized sinuses and mastoids are clear. IMPRESSION: No acute process. Dictated by: Freedom Brandon M.D. on 08/21/2018 at 13:38 Approved by: Freedom Brandon M.D. on 08/21/2018 at 13:[address] [facility] Narrative Medical decision making narrative: 27-year-old female with chronic headaches has had greater than 50 days in a row headache. She has seen her specialist on multiple occasions and now been to the emergency department twice this week. Imaging is unremarkable as is her neurologic exam. She has appointments coming up earlier in the week period with a lengthy discussion about how we can best try to help her symptoms and keep her out of the emergency department and agreed to write a short prescription of oxycodone as she has been given this in the past. She understands this is not a typical approach to the management of chronic headaches and that we are unlikely to fill another prescription under these circumstances. Multiple diagnoses for her headache include migraine, tension headache versus subarachnoid hemorrhage versus meningitis versus other Discharge Plan Departure Patient Disposition: Home Clinical Impression: Migraine Qualifiers: Migraine type: unspecified Status migrainosus presence: without status migrainosus Intractability: intractable Qualified Code(s): G43.919 - Migraine, unspecified, intractable, without status migrainosus Discharge Date/Time: 08/21/18 14:13 Interventions: ED Discharge Assessment Last Done: 08/21/18 14:12 Instructions: DI for Migraine, DI for Headache Activity Restrictions/Additional Instructions: You have been prescribed narcotic medications. While on these medications you cannot drive or operate heavy machinery. Additionally you cannot sign legal documents or perform any duties such as this. 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 Please understand that we cannot provide further refills of narcotics or controlled substances through the ED and your pain management will need to be through your Primary Care Provider Prescriptions: New oxycodone 5 mg tablet 5 mg PO Q4-6H PRN (Reason: pain) Qty: 10 RF: 0 No Action verapamil 80 mg Tablet 80 mg PO DAILY RF: 0 Qvar RediHaler 40 mcg/actuation Hfa Aerosol Breath Activated 1 puff INHALATION Q12H PRN (Reason: Shortness Of Breath) RF: 0 sumatriptan succinate 100 mg tablet 100 mg PO DAILY RF: 0 ondansetron 4 mg tablet,disintegrating 4 mg PO BID RF: 0 Ajovy 225 mg/1.5 mL syringe 225 mg SUBCUT QMONTH Qty: 1.5 RF: 11 Referrals: Valeri Jenkins MD [Primary Care Provider] -
--- NOTE | 2018-08-21 12:38 | DI.CT.S_ITS ---
PROCEDURE: CT HEAD/BRAIN WO CON INDICATIONS: worst headache, syncope TECHNIQUE: Noncontrast 4.5 mm thick angled axial sections acquired from the foramen magnum to the vertex, with coronal and sagittal reformats. For radiation dose reduction, the following was used: automated exposure control, adjustment of mA and/or kV according to patient size. COMPARISON: [facility], CT, CT HEAD WITHOUT CONTRAST, 09/24/2017, 15:31. [facility], CT, HEAD WITHOUT CONTRAST, 07/21/2016, 12:24. [facility], CT, HEAD WITHOUT CONTRAST, 05/10/2016, 12:48. [facility], CT, HEAD WITHOUT CONTRAST, 08/19/2015, 10:21. FINDINGS: Image quality: Excellent. CSF spaces: Basal cisterns are patent. No extra-axial fluid collections. Ventricles are normal in size and shape. Cavum septum hernia is present. Brain: No midline shift. No intracranial masses or hemorrhage. Gauthier-white matter interface is normal. Skull and face: Calvarium and visualized facial bones are intact, without suspicious lesions. Sinuses: Visualized sinuses and mastoids are clear. IMPRESSION: No acute process. Dictated by: Freedom Brandon M.D. on 08/21/2018 at 13:38 Approved by: Freedom Brandon M.D. on 08/21/2018 at 13:39
[2018-08-21 12:46] LABS: Add Manual Diff / Slide Review NO; Basophils Absolute Auto 100 /uL (0-100); Basophils Percent Auto 0.6 % (0-2); Eosinophils Absolute Auto 200 /uL (0-450); Eosinophils Percent Auto 1.5 % (2-4); Hematocrit 33.5 % (36-46); Lymphocytes Absolute Auto 2700 /uL (1100-4500); Lymphocytes Percent Auto 25.4 % (25-40); Mean Corpuscular HGB Conc 32.7 % (30-36); Mean Corpuscular Hemoglobin 30.5 PG (26-34); Mean Corpuscular Volume 93.3 fL (80-100); Monocytes Absolute Auto 600 /uL (0-900); Monocytes Percent Auto 5.5 % (3-14); Neutrophils Absolute Auto 7100 /uL (1500-7000); Platelet Count 225 X10^3/uL (150-400); Red Blood Cell Count 3.59 X10^6/uL (4.0-5.2); Red Cell Distribution Width 15.6 % (11.6-14.8); White Blood Cell Count 10.6 X10^3/uL (4.5-11.0)
[2018-08-21 12:48] LABS: HEMOLYSIS < 15 (0-50)
[2018-08-21] MEDS: ONDANSETRON 4 MG/2 ML INJ IV (12:48)
[2018-08-21] MEDS: DEXAMETHASONE 10 MG/ML VIAL IV (12:48)
[2018-08-21] MEDS: SODIUM CHLORIDE 0.9% 1,000 ML 1000 ML IV (12:48)
[2018-08-21] MEDS: HYDROMORPHONE 1 MG INJ IV ×2 (12:48→14:00)
[2018-08-21 12:54] LABS: BUN Creatinine Ratio 16.7 (6-22); Blood Urea Nitrogen 10 mg/dL (7-17); Calcium 8.7 mg/dL (8.4-10.2); Carbon Dioxide 25 mmol/L (22-32); Chloride 108 mmol/L (98-107); Estimated Glomerular Filt Rate > 60.0 mL/min (>60); Glucose 74 mg/dL (70-100); Potassium 3.8 mmol/L (3.4-5.1); Sodium 140 mmol/L (137-145)
[2018-08-21 13:15] LABS: Prolactin 34.9 ng/mL (3.0-18.6)
--- NOTE | 2018-08-21 13:40 | ED_ITS ---
HPI - Headache General Chief Complaint: Headache Stated Complaint: blacked out yesterday, migraines Time Seen by Provider: 08/21/18 12:11 Source: patient and family Mode of arrival: ambulatory Limitations: no limitations History of Present Illness HPI Narrative: 27-year-old female nonsmoker with chronic migraines presents with ongoing trouble. She was seen and evaluated a few days ago and given IV fluids Dilaudid and Compazine and had improvement to the point of requesting discharge. She continues to headaches and has been unable to reach her local headache specialist whom is out of town. She denies any injury nor fever or chills. She has no focal neurologic findings. She has been continuing to take her medications as directed. She is admittedly losing sleep, fatigued very stressed about the situation. Yesterday during a particularly bad episode she had a near syncopal moment with complete resolution. She had prodromal findings and could feel herself getting lightheaded. MD Complaint: headache Onset (ago): day(s) Onset description: gradual Location: diffuse Severity: severe Quality: aching, throbbing and worst headache of life Relieving factors: nothing Exacerbating factors: light and noise Associated symptoms: near syncope Treatments prior to arrival: migraine medication Related Data Home Medications Medication Instructions Recorded Confirmed beclomethasone dipropionate [Qvar 1 puff INHALATION Q12H PRN 08/21/18 08/21/18 RediHaler] ondansetron 4 mg PO BID 08/21/18 08/21/18 sumatriptan succinate 100 mg PO DAILY 08/21/18 08/21/18 verapamil 80 mg PO DAILY 08/21/18 08/21/18 Previous Rx's Medication Instructions Recorded fremanezumab-vfrm 225 mg/1.5 mL 225 mg SUBCUT QMONTH #1.5 ml 06/16/18 subcutaneous syringe oxycodone 5 mg PO Q4-6H PRN #10 tab 08/21/18 Allergies Allergy/AdvReac Type Severity Reaction Status Date / Time buspirone [BUSPIRONE] Allergy Mild RASH ON Verified 08/06/18 14:41 FACE lamotrigine [LAMOTRIGINE] Allergy Mild RASH ON Verified 08/06/18 14:41 FACE morphine [MORPHINE] Allergy Mild HIVES,ITCHI Verified 08/06/18 14:41 NG bupropion [From WELLBUTRIN] Allergy Unknown Verified 08/06/18 14:41 hydrocodone [HYDROCODONE] AdvReac Unknown ABD PAIN Verified 08/06/18 14:41 Review of Systems Constitutional Denies chills, Denies fever(s), Reports headache(s), Denies lethargy and Denies weakness Eyes Denies change in vision, Denies eye discharge, Denies irritation and Denies loss of vision ENT Ears, Nose, Mouth, and Throat: Denies change in voice, Reports headache(s), Denies neck pain and Denies sore throat Cardiovascular Denies chest pain, Denies irregular heart rhythm, Reports lightheadedness, Denies palpitations, Denies dyspnea, Denies dyspnea on exertion and Denies orthopnea Respiratory Denies cough, Denies dyspnea, Denies dyspnea on exertion and Denies wheezing Gastrointestinal Gastrointestinal: Denies abdominal pain, Denies change in bowel habits, Denies d iarrhea, Denies nausea and Denies vomiting Genitourinary Denies hematuria, Denies flank pain, Denies urinary incontinence and Denies urinary urgency Musculoskeletal Denies neck pain Integumentary/Breasts Denies pruritus, Denies erythema, Denies rash and Denies wounds Neurologic Denies confusion, Reports headache(s), Denies loss of vision and Denies weakness Psychiatric Denies anxiety, Denies confusion, Denies depression, Denies homicidal ideation and Denies suicidal ideation Endocrine Denies palpitations Hematologic/Lymphatic Denies easy bruising Allergic/Immunologic Denies wheezing [facility] Medical History ADHD (attention deficit hyperactivity disorder) (Chronic) Bipolar disorder (Chronic) Migraines (Chronic) Neck pain on right side (Chronic 2010) PTSD (post-traumatic stress disorder) (Chronic) Shoulder pain (Chronic 2010) Closed head injury with concussion (Resolved 2015) Pseudoseizures (Resolved 2012) Substance abuse (Resolved) Family History Mother MS (multiple sclerosis) Social History Smoking Status: Current every day smoker Family History Mother MS (multiple sclerosis) Social History Smoking Status: Current every day smoker Exam Narrative Exam Narrative: GENERAL: 27-year-old female obviously uncomfortable, sitting in a dark room rubbing her temples HEAD: Atraumatic. Normocephalic. No temporal or scalp tenderness. EYES: Pupils equal round and reactive. Extraocular motions intact. No scleral icterus. No injection or drainage. ENT: Nose without bleeding, purulent drainage or septal hematoma. Throat without erythema, tonsillar hypertrophy or exudate. Uvula midline. Airway patent. NECK: Trachea midline. No JVD or lymphadenopathy. Supple, nontender, no meningeal signs. CARDIOVASCULAR: Regular rate and rhythm without murmurs, gallops, or rubs. RESPIRATORY: Clear to auscultation. Breath sounds equal bilaterally. No wheezes, rales, or rhonchi. GASTROINTESTINAL: Abdomen soft, non-tender, nondistended. No hepato- splenomegaly, or palpable masses. No guarding. EXTREMITIES: No clubbing, cyanosis, or edema. No joint tenderness, effusion, or edema noted. BACK: Nontender without deformity or crepitance. No flank tenderness. NEURO: AOx3. SKIN: No rash or erythema. NIH Stroke Scale 1a. LOC: Patient is alert and keenly responsive (0) 1b. LOC Questions: Patient answers both LOC questions accurately (0) 1c. LOC Commands: Patient performs both tasks correctly (0) 2. Best Gaze: Normal (0) 3. Visual: No visual loss (0) 4. Facial palsy: Normal symmetrical movements (0) 5. Motor arm: No drift (0) 6. Motor leg: No drift (0) 7. Limb ataxia: Absent (0) 8. Sensory: Normal (0) 9. Best language: No aphasia; normal (0) 10. Dysarthria: Normal (0) 11. Extinction and inattention: No abnormality (0) NIHSS: 0 Initial Vital Signs Initial Vital Signs: Vital Signs Temperature 97.6 F 08/21/18 12:13 Pulse Rate 118 H 08/21/18 12:13 Respiratory Rate 18 08/21/18 12:13 Blood Pressure 136/81 08/21/18 12:13 Pulse Oximetry 100 08/21/18 12:13 Course Orders Ordered: ED Orders 08/21/18 12:29 EKG-12 Lead Routine 08/21/18 12:35 Basic Metabolic Panel Stat Complete Blood Count AUTO DIFF Stat Prolactin Stat 08/21/18 12:38 CT head/brain wo con Stat Discontinued Medications Dexamethasone (Decadron) 10 mg IV NOW ONE Stop: 08/21/18 12:30 Last Admin: 08/21/18 12:48 Dose: 10 mg Hydromorphone HCl (Dilaudid) 1 mg IV NOW ONE Stop: 08/21/18 12:30 Last Admin: 08/21/18 12:48 Dose: 1 mg Hydromorphone HCl (Dilaudid) 1 mg IV NOW ONE Stop: 08/21/18 13:54 Last Admin: 08/21/18 14:00 Dose: 1 mg Sodium Chloride (Normal Saline 0.9%) 1,000 mls @ 1,000 mls/hr IV BOLUS ONE Stop: 08/21/18 13:28 Last Infusion: 08/21/18 14:11 Dose: 0 mls/hr Admin: 08/21/18 12:48 Dose: 1,000 mls/hr Ondansetron HCl (Zofran) 4 mg IV NOW ONE Stop: 08/21/18 12:30 Last Admin: 08/21/18 12:48 Dose: 4 mg Reevaluation(s) Reevaluation #1: Patient is feeling significant improvement over the above- stated complaints with Dilaudid and Zofran. Vital Signs - 8 hr 08/21/18 12:13 08/21/18 14:12 Temperature 97.6 F Pulse Rate 118 H 89 Respiratory Rate 18 16 Blood Pressure 136/81 123/71 Pulse Oximetry 100 99 MDM - Headache Lab Data Result diagrams: 08/21/18 12:35 08/21/18 12:35 Lab Results 08/21/18 08/21/18 Range/Units 12:35 12:35 WBC 10.6 (4.5-11.0) X10^3/uL RBC 3.59 L (4.0-5.2) X10^6/uL Hgb 11.0 L (12.0-16.0) g/dL Hct 33.5 L (36-46) % MCV 93.3 (80-100) fL MCH 30.5 (26-34) PG MCHC 32.7 (30-36) % RDW 15.6 H (11.6-14.8) % Plt Count 225 (150-400) X10^3/uL Neut % (Auto) 67.0 (50-75) % Lymph % (Auto) 25.4 (25-40) % [place] % (Auto) 5.5 (3-14) % Eos % (Auto) 1.5 L (2-4) % Baso % (Auto) 0.6 (0-2) % Neut # (Auto) 7100 H (6546-2634) /uL Lymph # (Auto) 2700 (0650-4628) /uL [place] # (Auto) 600 (0-900) /uL Eos # (Auto) 200 (0-450) /uL Baso # (Auto) 100 (0-100) /uL Sodium 140 (137-145) mmol/L Potassium 3.8 (3.4-5.1) mmol/L Chloride 108 H (98-107) mmol/L Carbon Dioxide 25 (22-32) mmol/L BUN 10 (7-17) mg/dL Creatinine 0.60 (0.52-1.04) mg/dL Estimated GFR > 60.0 (>60) mL/min BUN/Creatinine Ratio 16.7 (6-22) Glucose 74 (70-100) mg/dL Calcium 8.7 (8.4-10.2) mg/dL Prolactin 34.9 H (3.0-18.6) ng/mL Imaging Data CT scan - head: Radiologist's impression: Chart Viewer Diagnostics DATE TYPE STATUS AUTHOR Hx 08/21/18 12:38 Freedom Brandon 07/22/18 19:14 Efra Anders 04/28/18 00:00 [facility] - US Pelvic & CT Pelvic 04/25/18 09:05 [facility], Abdomen US 12/24/17 09:00 [facility], US pelvis 10/27/17 14:38 Xray - Chest 2 View 09/11/17 10:42 [facility], Cervical Spine XR Anastasiya Vizcarra 1990 [facility], ED.LOC - Main ED 113.852kg Headache Search Chart RASH ON FACE RASH ON FACE HIVES,ITCHING ABD PAIN ONSET 09/10/13 09/10/13 Today 14:12 Anastasiya Vizcarra 27 F [address] [address] [address] Scan Report Signed Patient: Anastasiya Vizcarra [facility]#: [id number] : 1990Acct:[id number] Age/Sex: 27 / FDate of Service: 08/21/18 Loc: ED Accession Number: [id number] Procedure: CT head/brain wo con Ordering Provider: Nathaniel Tristan D.O. PROCEDURE: CT HEAD/BRAIN WO CON INDICATIONS: worst headache, syncope TECHNIQUE: Noncontrast 4.5 mm thick angled axial sections acquired from the foramen magnum to the vertex, with coronal and sagittal reformats. For radiation dose reduction, the following was used: automated exposure control, adjustment of mA and/or kV according to patient size. COMPARISON: [facility], CT, CT HEAD WITHOUT CONTRAST, 09/24/2017, 15:31. Located Within [facility], CT, HEAD WITHOUT CONTRAST, 07/21/2016, 12:24. Located Within [facility], CT, HEAD WITHOUT CONTRAST, 05/10/2016, 12:48. Located Within [facility], CT, HEAD WITHOUT CONTRAST, 08/19/2015, 10:21. FINDINGS: Image quality: Excellent. CSF spaces: Basal cisterns are patent. No extra-axial fluid collections. Ventricles are normal in size and shape. Cavum septum hernia is present. Brain: No midline shift. No intracranial masses or hemorrhage. Gauthier-white matter interface is normal. Skull and face: Calvarium and visualized facial bones are intact, without suspicious lesions. Sinuses: Visualized sinuses and mastoids are clear. IMPRESSION: No acute process. Dictated by: Freedom Brandon M.D. on 08/21/2018 at 13:38 Approved by: Freedom Brandon M.D. on 08/21/2018 at 13:39 [facility] Narrative Medical decision making narrative: 27-year-old female with chronic headaches has had greater than 50 days in a row headache. She has seen her specialist on multiple occasions and now been to the emergency department twice this week. Imaging is unremarkable as is her neurologic exam. She has appointments coming up earlier in the week period with a lengthy discussion about how we can best try to help her symptoms and keep her out of the emergency department and agreed to write a short prescription of oxycodone as she has been given this in the past. She understands this is not a typical approach to the management of chronic headaches and that we are unlikely to fill another prescription under these circumstances. Multiple diagnoses for her headache include migraine, tension headache versus subarachnoid hemorrhage versus meningitis versus other Discharge Plan Departure Patient Disposition: Home Clinical Impression: Migraine Qualifiers: Migraine type: unspecified Status migrainosus presence: without status migrainosus Intractability: intractable Qualified Code(s): G43.919 - Migraine, u nspecified, intractable, without status migrainosus Discharge Date/Time: 08/21/18 14:13 Interventions: ED Discharge Assessment Last Done: 08/21/18 14:12 Instructions: DI for Migraine, DI for Headache Activity Restrictions/Additional Instructions: You have been prescribed narcotic medications. While on these medications you cannot drive or operate heavy machinery. Additionally you cannot sign legal documents or perform any duties such as this. Many people get constipated on narcotic medications so it would be advisable to discuss stool softeners with the pharmacist when you pick up worker your prescription. Please understand that we cannot provide further refills of narcotics or controlled substances through the ED and your pain management will need to be through your Primary Care Provider Prescriptions: New oxycodone 5 mg tablet 5 mg PO Q4-6H PRN (Reason: pain) Qty: 10 RF: 0 No Action verapamil 80 mg Tablet 80 mg PO DAILY RF: 0 Qvar RediHaler 40 mcg/actuation Hfa Aerosol Breath Activated 1 puff INHALATION Q12H PRN (Reason: Shortness Of Breath) RF: 0 sumatriptan succinate 100 mg tablet 100 mg PO DAILY RF: 0 ondansetron 4 mg tablet,disintegrating 4 mg PO BID RF: 0 Ajovy 225 mg/1.5 mL syringe 225 mg SUBCUT QMONTH Qty: 1.5 RF: 11 Referrals: Valeri Jenkins MD [Primary Care Provider] -
[2018-08-21 14:12] VITALS: BP 123/71; PULSE 89; RESP 16; O2SAT 99
== END 2018-08-21 14:13 | disposition home or self-care (01) ==
PROVIDERS: Emergency Provider Emergency Medicine; Family Provider Family Medicine; PCP Family Medicine
DX: G43.919 Migraine, unspecified, intractable, without status migrainosus (principal); R55 Syncope and collapse
CPT/HCPCS: 36591; 70450; 80048; 84146; 85025; 93005; 96361; 96374; 96375; 96376; 99283; 99285; J1100; J1170; J2405

== ENCOUNTER → 2018-09-12 10:40 | Outpatient (CLI) | payer OTHER, SELFPAY ==
[2018-09-12 12:28] LABS: Add Manual Diff / Slide Review NO; Basophils Absolute Auto 0 /uL (0-100); Basophils Percent Auto 0.4 % (0-2); Eosinophils Absolute Auto 100 /uL (0-450); Eosinophils Percent Auto 1.4 % (2-4); Hematocrit 35.9 % (36-46); Hemoglobin 12.2 g/dL (12.0-16.0); Lymphocytes Absolute Auto 2100 /uL (1100-4500); Lymphocytes Percent Auto 28.4 % (25-40); Mean Corpuscular Hemoglobin 30.9 PG (26-34); Mean Corpuscular Volume 90.8 fL (80-100); Monocytes Absolute Auto 400 /uL (0-900); Monocytes Percent Auto 5.8 % (3-14); Neutrophils Absolute Auto 4800 /uL (1500-7000); Platelet Count 295 X10^3/uL (150-400); Red Blood Cell Count 3.95 X10^6/uL (4.0-5.2); Red Cell Distribution Width 14.8 % (11.6-14.8); White Blood Cell Count 7.5 X10^3/uL (4.5-11.0)
[2018-09-12 12:45] LABS: Alanine Aminotransferase 37 IU/L (9-52); Albumin 4.4 g/dL (3.5-5.0); Albumin Globulin Ratio 1.5 (1.0-2.8); Alkaline Phosphatase 73 U/L (38-126); Aspartate Aminotransferase 26 IU/L (14-36); BUN Creatinine Ratio 26.7 (6-22); Bilirubin Total 0.3 mg/dL (0.2-1.3); Blood Urea Nitrogen 16 mg/dL (7-17); Calcium 9.5 mg/dL (8.4-10.2); Carbon Dioxide 27 mmol/L (22-32); Chloride 105 mmol/L (98-107); Estimated Glomerular Filt Rate > 60.0 mL/min (>60); Globulin 2.9 g/dL (1.7-4.1); Glucose 93 mg/dL (70-100); HEMOLYSIS < 15 (0-50); Sodium 138 mmol/L (137-145); Total Protein 7.3 g/dL (6.3-8.2)
[2018-09-12 12:51] LABS: Erythrocyte Sedimentation Rate 16 MM/HR (0-20)
== END ==
PROVIDERS: PCP Family Medicine; Visit Provider Family Medicine
DX: G43.909 Migraine, unspecified, not intractable, without status migrainosus (principal)
CPT/HCPCS: 36415; 80053; 85025; 85651

== ENCOUNTER 2018-12-21 00:12 | Emergency (ER) | payer OTHER, SELFPAY ==
[2018-12-21 00:20] VITALS: BP 155/90; PULSE 117; RESP 14; TEMP 36.8; O2SAT 96; BMI 35.2
[2018-12-21] MEDS: SODIUM CHLORIDE 0.9% 1,000 ML 1000 ML IV (00:31)
[2018-12-21] MEDS: HYDROMORPHONE 1 MG INJ IV (00:31)
[2018-12-21] MEDS: diphenhydrAMINE 50 MG/ML VIAL 25 MG IV (00:32)
[2018-12-21] MEDS: ONDANSETRON 4 MG/2 ML INJ IV (00:32)
[2018-12-21] MEDS: DEXAMETHASONE 10 MG/ML VIAL IV (00:32)
[2018-12-21 01:33] VITALS: BP 114/56; PULSE 82; O2SAT 98
--- NOTE | 2018-12-21 08:19 | ED_ITS ---
HPI - Headache General Chief Complaint: Headache Stated Complaint: Headache x9 days Time Seen by Provider: 12/21/18 00:19 Source: patient Mode of arrival: ambulatory Limitations: no limitations History of Present Illness HPI Narrative: 28-year-old female nonsmoker with chronic history of headaches presents with 9 days of migraine headache. She has a very lengthy history of the same and is closely followed by the local headache Clinic. Her headache is largely typical for her. She has nausea but denies vomiting. She denies any neurologic symptoms such as blurred vision, trouble speech nor numbness or tingling. She denies any recent injury nor fever chills. She has no neck pain. She has tried her typical regimen at home and states she needs a little help, she was encouraged to come by her headache doctor MD Complaint: headache and migraine Onset (ago): day(s) Onset description: gradual Location: diffuse Severity scale (1-10): 8 Quality: aching and throbbing Relieving factors: dark room Exacerbating factors: light and noise Context: occurred at rest Associated symptoms: nausea Treatments prior to arrival: migraine medication Related Data Home Medications Medication Instructions Recorded Confirmed beclomethasone dipropionate [Qvar 1 puff INHALATION Q12H PRN 08/21/18 09/12/18 RediHaler] ondansetron 4 mg PO BID 08/21/18 09/12/18 sumatriptan succinate 100 mg PO DAILY 08/21/18 09/12/18 verapamil 80 mg PO DAILY 08/21/18 09/12/18 indomethacin 25 mg capsule 25 mg PO TID cap 09/04/18 09/12/18 Previous Rx's Medication Instructions Recorded fremanezumab-vfrm 225 mg/1.5 mL 225 mg SUBCUT QMONTH #1.5 ml 06/16/18 subcutaneous syringe oxycodone 5 mg PO Q4-6H PRN #10 tab 08/21/18 omeprazole 20 mg capsule,delayed 20 mg PO DAILY #30 cap 09/04/18 release oxycodone 5 mg capsule 5 mg PO Q4-6H PRN #10 cap 09/12/18 gabapentin 100 mg capsule 100 mg PO TID #90 cap 10/13/18 indomethacin 25 mg capsule 25 mg PO BID #25 cap 10/13/18 oxycodone 5 mg tablet 5 mg PO BEDTIME PRN #10 tab 10/13/18 oxycodone-acetaminophen 7.5 mg-325 1 tab PO Q8H PRN #10 tab 11/25/18 mg tablet Allergies Allergy/AdvReac Type Severity Reaction Status Date / Time buspirone [BUSPIRONE] Allergy Mild RASH ON Verified 12/21/18 00:20 FACE lamotrigine [LAMOTRIGINE] Allergy Mild RASH ON Verified 12/21/18 00:20 FACE morphine [MORPHINE] Allergy Mild HIVES,ITCHI Verified 12/21/18 00:20 NG bupropion [From WELLBUTRIN] Allergy Unknown Verified 12/21/18 00:20 hydrocodone [HYDROCODONE] AdvReac Unknown ABD PAIN Verified 12/21/18 00:20 Review of Systems Constitutional Constitutional: Denies chills, Denies fatigue, Denies fever(s), Denies frequent falls, Reports headache(s), Denies lethargy and Denies weakness Eyes Eyes: Denies change in vision, Denies eye discharge, Denies irritation and D enies loss of vision ENT Ears, Nose, Mouth, and Throat: Denies change in voice, Denies dizziness, Reports headache(s), Denies neck pain, Denies sore throat and Denies throat swelling Cardiovascular Cardiovascular: Denies chest pain, Denies irregular heart rhythm, Denies lig htheadedness, Denies palpitations, Denies dyspnea, Denies dyspnea on exertion and Denies orthopnea Respiratory Respiratory: Denies cough, Denies dyspnea, Denies dyspnea on exertion and Denies wheezing Gastrointestinal Gastrointestinal: Denies abdominal pain, Denies change in bowel habits, Denies diarrhea, Denies nausea and Denies vomiting Genitourinary Genitourinary: Denies hematuria, Denies flank pain, Denies urinary incontinence and Denies urinary urgency Musculoskeletal Musculoskeletal: Denies back pain, Denies muscle weakness, Denies neck pain, Denies numbness and Denies tingling Integumentary/Breasts Skin/Breast: Denies pruritus, Denies erythema, Denies rash and Denies wounds Neurologic Neurologic: Denies behavioral changes, Denies confusion, Denies dizziness, Denies frequent falls, Reports headache(s), Denies loss of vision, Denies numbness, Denies tingling and Denies weakness Psychiatric Psychiatric: Denies anxiety, Denies behavioral changes, Denies confusion, Denies depression, Denies homicidal ideation and Denies suicidal ideation Endocrine Endocrine: Denies fatigue, Denies flushing and Denies palpitations Hematologic/Lymphatic Hematologic/Lymphatic: Denies easy bruising Allergic/Immunologic Allergic/Immunologic: Denies urticaria, Denies throat swelling and Denies wheezing [facility] Medical History ADHD (attention deficit hyperactivity disorder) (Chronic) Bipolar disorder (Chronic) Closed head injury with concussion (Resolved 2015) Migraines (Chronic) Neck pain on right side (Chronic 2010) Pseudoseizures (Resolved 2012) PTSD (post-traumatic stress disorder) (Chronic) Shoulder pain (Chronic 2010) Substance abuse (Resolved) Family History Mother MS (multiple sclerosis) Social History Smoking Status: Current every day smoker Family History Mother MS (multiple sclerosis) Social History Smoking Status: Current every day smoker Exam Narrative Exam Narrative: GENERAL: [28] year old patient appears stated age. Well- nourished, well-developed patient, in mild distress, obviously uncomfortable, massaging her temples HEAD: Atraumatic. Normocephalic. EYES: Pupils equal round and reactive. Extraocular motions intact. No scleral icterus. No injection or drainage. ENT: Nose without bleeding, purulent drainage. Throat without erythema, tonsillar hypertrophy or exudate. Airway patent. NECK: Trachea midline. Non tender CARDIOVASCULAR: Regular rate and rhythm without murmurs, gallops, or rubs. RESPIRATORY: Clear to auscultation. Breath sounds equal bilaterally. No wheezes, rales, or rhonchi. GASTROINTESTINAL: Abdomen soft, non-tender, nondistended. EXTREMITIES: No edema or joint tenderness. BACK: Nontender without deformity or crepitance. No flank tenderness. NEURO: AOx3. SKIN: No rash or erythema of visible areas Initial Vital Signs Initial Vital Signs: Vital Signs Temperature 98.2 F 12/21/18 00:20 Pulse Rate 117 H 12/21/18 00:20 Respiratory Rate 14 12/21/18 00:20 Blood Pressure 155/90 H 12/21/18 00:20 Pulse Oximetry 96 12/21/18 00:20 Course Orders Ordered: Discontinued Medications Dexamethasone (Decadron) 10 mg IV NOW ONE Stop: 12/21/18 00:20 Last Admin: 12/21/18 00:32 Dose: 10 mg Documented by: CLINTON Diphenhydramine HCl (Benadryl) 25 mg IV NOW ONE Stop: 12/21/18 00:20 Last Admin: 12/21/18 00:32 Dose: 25 mg Documented by: [place] Hydromorphone HCl (Dilaudid) 1 mg IV NOW ONE Stop: 12/21/18 00:20 Last Admin: 12/21/18 00:31 Dose: 1 mg Documented by: [place] Sodium Chloride (Normal Saline 0.9%) 1,000 mls @ 1,000 mls/hr IV BOLUS ONE Stop: 12/21/18 01:18 Last Infusion: 12/21/18 01:33 Dose: 0 mls/hr Documented by: Admin: 12/21/18 00:31 Dose: 1,000 mls/hr Documented by: [place] Ondansetron HCl (Zofran) 4 mg IV Q4HR PRN PRN Reason: Nausea And Vomiting Last Admin: 12/21/18 00:32 Dose: 4 mg Documented by: CLINTON Reevaluation(s) Reevaluation #1: Patient is near complete resolution of symptoms after the above-stated therapies Vital Signs Vital signs: Vital Signs - 8 hr 12/21/18 01:33 Pulse Rate 82 Blood Pressure 114/56 L Pulse Oximetry 98 Discharge Plan Departure Patient Disposition: Home Clinical Impression: Migraine Qualifiers: Migraine type: unspecified Status migrainosus presence: without status migrainosus Intractability: not intractable Qualified Code(s): G43.909 - Migraine, unspecified, not intractable, without status migrainosus Discharge Date/Time: 12/21/18 01:34 Instructions: DI for Headache Activity Restrictions/Additional Instructions: *You have been diagnosed with [acute migraine] *What to do: *Take medications as directed *Follow up with your primary care provider in 2-3 days, call for an appointment. Let them know you were seen in the Emergency Department and that we ask that you be seen in follow up *Return to ER if you should have any new, worsening or concerning symptoms Prescriptions: No Action oxycodone 5 mg capsule 5 mg PO Q4-6H PRN (Reason: pain) Qty: 10 RF: 0 verapamil 80 mg Tablet 80 mg PO DAILY RF: 0 Qvar RediHaler 40 mcg/actuation Hfa Aerosol Breath Activated 1 puff INHALATION Q12H PRN (Reason: Shortness Of Breath) RF: 0 sumatriptan succinate 100 mg tablet 100 mg PO DAILY RF: 0 ondansetron 4 mg tablet,disintegrating 4 mg PO BID RF: 0 oxycodone 5 mg tablet 5 mg PO Q4-6H PRN (Reason: pain) Qty: 10 RF: 0 Ajovy 225 mg/1.5 mL syringe 225 mg SUBCUT QMONTH Qty: 1.5 RF: 11 indomethacin 25 mg capsule 25 mg PO BID Qty: 25 RF: 2 oxycodone 5 mg tablet 5 mg PO BEDTIME PRN (Reason: pain) Qty: 10 RF: 0 gabapentin 100 mg capsule 100 mg PO TID Qty: 90 RF: 2 oxycodone-acetaminophen 7.5-325 mg tablet 1 tab PO Q8H PRN (Reason: pain) Qty: 10 RF: 0 indomethacin 25 mg capsule 25 mg PO TID RF: 0 omeprazole 20 mg capsule,delayed release(DR/EC) 20 mg PO DAILY Qty: 30 RF: 10 Referrals: Wale Ruiz MD [Primary Care Provider] -
== END 2018-12-21 01:34 | disposition home or self-care (01) ==
PROVIDERS: Emergency Provider Emergency Medicine; PCP Obstetrics & Gynecology
DX: G43.909 Migraine, unspecified, not intractable, without status migrainosus (principal)
CPT/HCPCS: 96361; 96374; 96375; 99283; 99284; J1100; J1170; J1200; J2405

== ENCOUNTER 2019-08-02 09:34 | Emergency (ER) | payer OTHER, SELFPAY ==
[2019-08-02 09:40] VITALS: BP 145/80; PULSE 113; RESP 22; TEMP 36.4; O2SAT 98; BMI 40.9
--- NOTE | 2019-08-02 09:59 | ED_ITS ---
HPI - General Adult General Chief complaint: Urogenital-Female Stated complaint: swelling in legs flank pain and blood in urine Time Seen by Provider: 08/02/19 09:56 Source: patient and old records reviewed Mode of arrival: Ambulatory Limitations: no limitations History of Present Illness HPI narrative: 28-year-old female comes to the emergency department with complaint of hematuria, right flank pain and frequency, dysuria and a sense of urgency that is intermittent. Patient states she has had several days of s ymptoms. She has also noticed some swelling in her lower extremities. She has also had a migraine for 4-5 days. She states that she has not had any atypical changes. Patient has a known history of migraines and follows frequently with pain management and is in the process of potentially being set up for a stimulator and Botox. She is taking a current therapy and does have a pain contract. Patient denies any fevers. She denies any cold cough or congestion, she denies any chest pain or shortness of breath. She has had some mild nausea. No vomiting. She has not had any changes to bowel movements. She denies any abdominal pain. She states that typically when she has had bladder or kidney infections the pain shoots up her back and today it seems more like it is going down her back. She has had hysterectomy as well as appendectomy and cholecystectomy. Related Data Home Medications Medication Instructions Recorded Confirmed beclomethasone dipropionate [Qvar 1 puff INHALATION Q12H PRN 08/21/18 09/12/18 RediHaler] ondansetron 4 mg PO BID 08/21/18 09/12/18 sumatriptan succinate 100 mg PO DAILY 08/21/18 09/12/18 verapamil 80 mg PO DAILY 08/21/18 09/12/18 indomethacin 25 mg capsule 25 mg PO TID cap 09/04/18 09/12/18 Previous Rx's Medication Instructions Recorded fremanezumab-vfrm 225 mg/1.5 mL 225 mg SUBCUT QMONTH #1.5 ml 06/16/18 subcutaneous syringe oxycodone 5 mg PO Q4-6H PRN #10 tab 08/21/18 omeprazole 20 mg capsule,delayed 20 mg PO DAILY #30 cap 09/04/18 release oxycodone 5 mg capsule 5 mg PO Q4-6H PRN #10 cap 09/12/18 gabapentin 100 mg capsule 100 mg PO TID #90 cap 10/13/18 indomethacin 25 mg capsule 25 mg PO BID #25 cap 10/13/18 oxycodone 5 mg tablet 5 mg PO BEDTIME PRN #10 tab 10/13/18 oxycodone-acetaminophen 7.5 mg-325 1 tab PO Q8H PRN #10 tab 11/25/18 mg tablet oxycodone-acetaminophen 7.5 mg-325 1 tab PO Q8H PRN #30 tab 12/25/18 mg tablet oxycodone 5 mg tablet 2.5 mg PO DAILY PRN #10 tab 03/03/19 verapamil 80 mg tablet 120 mg PO QID #120 tab 03/03/19 oxycodone-acetaminophen 7.5 mg-325 1 tab PO Q8H PRN #10 tab 03/24/19 mg tablet oxycodone-acetaminophen 7.5 mg-325 1 tab PO Q8H PRN #10 tab 03/24/19 mg tablet oxycodone-acetaminophen 7.5 mg-325 1 tab PO Q8H PRN #10 tab 03/24/19 mg tablet Allergies Allergy/AdvReac Type Severity Reaction Status Date / Time buspirone [BUSPIRONE] Allergy Mild RASH ON Verified 08/02/19 10:37 FACE lamotrigine [LAMOTRIGINE] Allergy Mild RASH ON Verified 08/02/19 10:37 FACE morphine [MORPHINE] Allergy Mild HIVES,ITCHI Verified 08/02/19 10:37 NG bupropion [From WELLBUTRIN] Allergy Unknown Verified 08/02/19 10:37 hydrocodone [HYDROCODONE] AdvReac Unknown ABD PAIN Verified 08/02/19 10:37 metoclopramide [From Reglan] AdvReac Anxiety Verified 08/02/19 10:37 Review of Systems Review of Systems ROS Unobtainable: All systems reviewed & are unremarkable except as noted in HPI and below Patient History Medical History (Updated 08/02/19 @ 11:43 by Saumya Ruby DO) ADHD (attention deficit hyperactivity disorder) (Chronic) Bipolar disorder (Chronic) Closed head injury with concussion (Resolved 2015) Migraines (Chronic) Neck pain on right side (Chronic 2010) Pseudoseizures (Resolved 2012) PTSD (post-traumatic stress disorder) (Chronic) Shoulder pain (Chronic 2010) Substance abuse (Resolved) Surgical History (Updated 08/02/19 @ 10:23 by Saumya Ruby DO) H/O: hysterectomy (Acute) Hx of appendectomy (Acute) Hx of cholecystectomy (Acute) Social History Smoking Status: Current every day smoker Smoking Status: Current every day smoker alcohol intake frequency: holidays/special occasions only Substance Use Type: marijuana Exam Narrative Exam Narrative: GEN: Obese, well-appearing female, alert and oriented x 3, pat ient appears to be in mild distress. HEENT: Atraumatic, pupils are equal round reactive to light, extraocular movements are intact, no photophobia, nares are clear. HEART: Regular rate and rhythm without murmur, clicks, rubs. LUNGS:Lungs clear to auscultation, no wheezes, rales, crackles, chest moves symmetrically, no tachypnea accessory muscle use, patient has line where socks are tight, no edema noted otherwise. ABD:bowel sounds normal, soft, non-tender, no guarding, rebound, rigidity, no m asses noted, no hepatosplenomegaly :No CVA tenderness MSCL: Non-tender, no muscle atrophy, muscles strength 5/5 upper and lower extremities, full range of motion, normal gait NEURO:CN 2-12 intact, sensation normal. SKIN: Rash, erythema other skin changes Initial Vital Signs Initial Vital Signs: Vital Signs Temperature 97.6 F 08/02/19 09:40 Pulse Rate 113 H 08/02/19 09:40 Respiratory Rate 22 08/02/19 09:40 Blood Pressure 145/80 H 08/02/19 09:40 Pulse Oximetry 98 08/02/19 09:40 Scores GCS Kamron coma scale eye opening: Spontaneous [place] coma scale verbal response: Orientated [place] coma scale motor response: Obey commands [place] coma scale total score: 15 Course Orders Ordered: ED Orders 08/02/19 09:51 Complete Blood Count AUTO DIFF Stat Comprehensive Metabolic Panel Stat Lipase Stat Urinalysis and Microscopic Stat Urine Drug Screen, Rapid Stat 08/02/19 10:16 US abdomen complete Stat 08/02/19 11:42 Urine Culture Stat Discontinued Medications Diphenhydramine HCl (Benadryl) 50 mg IV NOW ONE Stop: 08/02/19 10:17 Last Admin: 08/02/19 10:31 Dose: 50 mg Documented by: PATRIA Hydromorphone HCl (Dilaudid) 1 mg IV NOW ONE Stop: 08/02/19 11:54 Last Admin: 08/02/19 11:55 Dose: 1 mg Documented by: PATRIA Sodium Chloride (Normal Saline 0.9%) 1,000 mls @ 1,000 mls/hr IV BOLUS ONE Stop: 08/02/19 11:17 Last Infusion: 08/02/19 12:10 Dose: 0 mls/hr Documented by: Admin: 08/02/19 10:31 Dose: 1,000 mls/hr Documented by: PATRIA Ketorolac Tromethamine (Toradol) 30 mg IV NOW ONE Stop: 08/02/19 10:17 Last Admin: 08/02/19 10:31 Dose: 30 mg Documented by: PATRIA Metoclopramide HCl (Reglan) 10 mg IV NOW ONE Stop: 08/02/19 10:20 Last Admin: 08/02/19 10:36 Dose: Not Given Documented by: PATRIA Vital Signs Vital signs: Vital Signs - 8 hr 08/02/19 09:40 08/02/19 11:27 08/02/19 12:20 Temperature 97.6 F Pulse Rate 113 H 61 69 Respiratory Rate 22 20 20 Blood Pressure 145/80 H 118/60 Blood Pressure [Right Arm] 112/53 L Pulse Oximetry 98 99 100 Medical Decision Making Lab Data Lab results reviewed: Yes I reviewed the patient's lab results. Result diagrams: 08/02/19 09:51 08/02/19 09:51 Labs: Lab Results 08/02/19 08/02/19 08/02/19 Range/Units 09:51 09:51 09:51 WBC 8.9 (4.5-11.0) X10^3/uL RBC 3.96 L (4.0-5.2) X10^6/uL Hgb 12.2 (12.0-16.0) g/dL Hct 36.1 (36-46) % MCV 91.2 (80-100) fL MCH 30.7 (26-34) PG MCHC 33.6 (30-36) % RDW 14.1 (11.6-14.8) % Plt Count 317 (150-400) X10^3/uL Neut % (Auto) 59.1 (50-75) % Lymph % (Auto) 31.2 (25-40) % [place] % (Auto) 6.7 (3-14) % Eos % (Auto) 2.1 (2-4) % Baso % (Auto) 0.9 (0-2) % Neut # (Auto) 5300 (1527-7767) /uL Lymph # (Auto) 2800 (2622-0504) /uL [place] # (Auto) 600 (0-900) /uL Eos # (Auto) 200 (0-450) /uL Baso # (Auto) 100 (0-100) /uL Sodium 139 (137-145) mmol/L Potassium 4.2 (3.4-5.1) mmol/L Chloride 109 H (98-107) mmol/L Carbon Dioxide 22 (22-32) mmol/L BUN 12 (7-17) mg/dL Creatinine 0.60 (0.52-1.04) mg/dL Estimated GFR > 60.0 (>60) mL/min BUN/Creatinine Ratio 20.0 (6-22) Glucose 112 H (70-100) mg/dL Calcium 9.8 (8.4-10.2) mg/dL Total Bilirubin 0.3 (0.2-1.3) mg/dL AST 36 (14-36) IU/L ALT 32 (<35) IU/L Alkaline Phosphatase 106 (38-126) U/L Total Protein 7.7 (6.3-8.2) g/dL Albumin 4.4 (3.5-5.0) g/dL Globulin 3.3 (1.7-4.1) g/dL Albumin/Globulin Ratio 1.3 (1.0-2.8) Lipase 48 (23-300) U/L Urine Color Yellow Urine Appearance Clear Urine pH 5.5 (4.5-8.0) Ur Specific [place] 1.020 (1.000-1.035) Urine Protein Negative (Negative) Urine Glucose (UA) Negative (Negative) g/dL Urine Ketones Negative (NEGATIVE) Urine Occult Blood 3+ H (Negative) Urine Nitrate Negative (Negative) Urine Bilirubin Negative (NEGATIVE) Urine Urobilinogen 0.2 (0.2) E.U./dL Ur Leukocyte Esterase Negative (NEGATIVE) Urine RBC >100/hpf H (0-5/HPF) Urine WBC None seen (0-5/HPF) Urine Bacteria None seen (None) Ur Culture Indicated? Cult not indicated U Opiates 300ng/mL cut (Negative) Ur Oxycodone Screen (Negative) Urine Methadone Screen (Negative) Ur Barbiturates Screen (Negative) U Tricyclic Antidepress (Negative) Ur Phencyclidine Scrn (Negative) Ur Amphetamines Screen (Negative) U Methamphetamines Scrn (Negative) Ur MDMA Scrn (Ecstasy) (Negative) U Benzodiazepines Scrn (Negative) Urine Cocaine Screen (Negative) U Marijuana (THC) Screen (Negative) 08/02/19 Range/Units 09:51 WBC (4.5-11.0) X10^3/uL RBC (4.0-5.2) X10^6/uL Hgb (12.0-16.0) g/dL Hct (36-46) % MCV (80-100) fL MCH (26-34) PG MCHC (30-36) % RDW (11.6-14.8) % Plt Count (150-400) X10^3/uL Neut % (Auto) (50-75) % Lymph % (Auto) (25-40) % [place] % (Auto) (3-14) % Eos % (Auto) (2-4) % Baso % (Auto) (0-2) % Neut # (Auto) (4060-5966) /uL Lymph # (Auto) (1125-6456) /uL [place] # (Auto) (0-900) /uL Eos # (Auto) (0-450) /uL Baso # (Auto) (0-100) /uL Sodium (137-145) mmol/L Potassium (3.4-5.1) mmol/L Chloride (98-107) mmol/L Carbon Dioxide (22-32) mmol/L BUN (7-17) mg/dL Creatinine (0.52-1.04) mg/dL Estimated GFR (>60) mL/min BUN/Creatinine Ratio (6-22) Glucose (70-100) mg/dL Calcium (8.4-10.2) mg/dL Total Bilirubin (0.2-1.3) mg/dL AST (14-36) IU/L ALT (<35) IU/L Alkaline Phosphatase (38-126) U/L Total Protein (6.3-8.2) g/dL Albumin (3.5-5.0) g/dL Globulin (1.7-4.1) g/dL Albumin/Globulin Ratio (1.0-2.8) Lipase (23-300) U/L Urine Color Urine Appearance Urine pH (4.5-8.0) Ur Specific [place] (1.000-1.035) Urine Protein (Negative) Urine Glucose (UA) (Negative) g/dL Urine Ketones (NEGATIVE) Urine Occult Blood (Negative) Urine Nitrate (Negative) Urine Bilirubin (NEGATIVE) Urine Urobilinogen (0.2) E.U./dL Ur Leukocyte Esterase (NEGATIVE) Urine RBC (0-5/HPF) Urine WBC (0-5/HPF) Urine Bacteria (None) Ur Culture Indicated? U Opiates 300ng/mL cut Negative (Negative) Ur Oxycodone Screen Negative (Negative) Urine Methadone Screen Negative (Negative) Ur Barbiturates Screen Negative (Negative) U Tricyclic Antidepress Negative (Negative) Ur Phencyclidine Scrn Negative (Negative) Ur Amphetamines Screen Negative (Negative) U Methamphetamines Scrn Negative (Negative) Ur MDMA Scrn (Ecstasy) Negative (Negative) U Benzodiazepines Scrn Negative (Negative) Urine Cocaine Screen Positive H (Negative) U Marijuana (THC) Screen Positive H (Negative) Imaging Data US - abdomen: Radiologist's Impression: [address] [address] Ultrasound Report Signed Patient: Anastasiya Vizcarra [facility]#: [id number] : 1990Acct:[id number] Age/Sex: 28 / FDate of Service: 08/02/19 Loc: ED Accession Number: [id number] Procedure: US abdomen complete Ordering Provider: Saumya Ruby D.O. PROCEDURE: US ABDOMEN COMPLETE INDICATIONS: RIGHT FLANK PAIN,HEMATURIA TECHNIQUE: Real-time scanning was performed of the abdominal and retroperitoneal organs, with image documentation. COMPARISON: [facility], CT, ABDOMEN/PELVIS WITH CONTRAST, 02/01/2017, 16:31. FINDINGS: Liver: Liver is normal in size and demonstrates mildly increased echogenicity when compared to the right kidney. No focal liver lesions are evident. Gallbladder: The patient has had a previous cholecystectomy. Biliary ducts: Intrahepatic bile ducts are non-dilated. Extrahepatic bile duct caliber measures 6 mm. Normal is 6-7 mm or less in diameter, or 10 mm or less post-cholecystectomy. Pancreas: Visualized portions of the pancreas are sonographically normal. Spleen: The spleen is mildly enlarged without a focal splenic lesion, measuring up to 12.9 cm in length. Kidneys: Kidneys are normal in size and echotexture. Right kidney measures 10.7 cm long; left kidney measures 12.6 cm long. No hydronephrosis or shadowing nephrolithiasis. No solid masses. Aorta: Visualized aorta is normal in caliber at less than 3 cm. Iliacs: Proximal common iliac arteries are normal in caliber at less than 2.5 cm. IVC: Intrahepatic inferior vena cava is patent. Miscellaneous: No free abdominal fluid. IMPRESSION: 1. No acute process is evident. 2. Probable mild hepatic steatosis. 3. No hydronephrosis. 4. Mild splenomegaly. Dictated by: Vignesh Redd M.D. on 08/02/2019 at 10:19 Approved by: Vignesh Redd M.D. on 08/02/2019 at 10:21 [facility] Narrative Medical decision making narrative: Patient comes in with complaint of hematuria, frequency and dysuria and is concerned about infection. She states that she can sometimes visualize the blood so that made her more concerned. She has also had a headache for several days and states that she does have a pain management contract and follows with pain management for her headaches. Patient's CBC does not show any major changes. Chemistry shows a chloride of 109 and a glucose of 112 but otherwise normal electrolytes and renal function with no changes to LFTs. Urine does show hematuria but no no signs of infection. Utox is positive for cocaine and thc. US shows mild splenomegaly, likely hepatic steatosis with no other acute changes. Discussed with patient urine culture sent if positive will call in antibiotics. Possibility of stone but not visualized on US, needs follow up with urology if continued symptoms for further evaluation. Patient given Toradol and Benadryl along with IV fluids for migraine. Patient had reglan ordered but states it makes her feel very anxious and was deferred. On recheck patient still has headache but has mildly improved. Patient Rx monitoring program reviewed. Last filled aprazolam #30 on 07/15/19 and oxycodone 5mg #30 on 07/13/19 and oxycotin ER 10mg #60 on 07/10/19. Patient and I did discuss that if she has a pain management contract she should update them that her drug screen was positive for cocaine today as it can cause com plications with her provider. Discharge Plan Departure Patient Disposition: Home Clinical Impression: Hematuria, Migraine, Flank pain Discharge Date/Time: 08/02/19 12:21 Instructions: DI for Hematuria Activity Restrictions/Additional Instructions: Follow up with your physician for recheck. Your urine today does not show obvious infection but does show blood. Urine culture was sent and take 48-72 hours to result if positive for infection you will be contacted to start antibiotics. Your ultrasound shows mildly enlarged spleen and fatty liver. There are no obvious kidney stones noted but this is a possiblity. If your symptoms do not resolve you should follow up with urology. Referral is included below. Continue your home medications for pain. You may take ibuprofen up to 600mg as needed if tolerated or tylenol up to 1000mg allan 8 hours as needed for pain. Return to ER for fevers greater than 100.4F, passing out, chest pain, shortness of breath, persistent vomiting, black or bloody stools, inability to urinate or other new or concerning symptoms. Prescriptions: No Action oxycodone 5 mg capsule 5 mg PO Q4-6H PRN (Reason: pain) Qty: 10 RF: 0 verapamil 80 mg Tablet 80 mg PO DAILY RF: 0 Qvar RediHaler 40 mcg/actuation Hfa Aerosol Breath Activated 1 puff INHALATION Q12H PRN (Reason: Shortness Of Breath) RF: 0 sumatriptan succinate 100 mg tablet 100 mg PO DAILY RF: 0 ondansetron 4 mg tablet,disintegrating 4 mg PO BID RF: 0 oxycodone 5 mg tablet 5 mg PO Q4-6H PRN (Reason: pain) Qty: 10 RF: 0 Ajovy 225 mg/1.5 mL syringe 225 mg SUBCUT QMONTH Qty: 1.5 RF: 11 indomethacin 25 mg capsule 25 mg PO BID Qty: 25 RF: 2 oxycodone 5 mg tablet 5 mg PO BEDTIME PRN (Reason: pain) Qty: 10 RF: 0 gabapentin 100 mg capsule 100 mg PO TID Qty: 90 RF: 2 oxycodone-acetaminophen 7.5-325 mg tablet 1 tab PO Q8H PRN (Reason: pain) Qty: 10 RF: 0 oxycodone-acetaminophen 7.5-325 mg tablet 1 tab PO Q8H PRN (Reason: pain) Qty: 30 RF: 0 indomethacin 25 mg capsule 25 mg PO TID RF: 0 omeprazole 20 mg capsule,delayed release(DR/EC) 20 mg PO DAILY Qty: 30 RF: 10 oxycodone-acetaminophen 7.5-325 mg tablet 1 tab PO Q8H PRN (Reason: pain) Qty: 10 RF: 0 oxycodone-acetaminophen 7.5-325 mg tablet 1 tab PO Q8H PRN (Reason: pain) Qty: 10 RF: 0 oxycodone-acetaminophen 7.5-325 mg tablet 1 tab PO Q8H PRN (Reason: pain) Qty: 10 RF: 0 verapamil 80 mg tablet 120 mg PO QID Qty: 120 RF: 5 oxycodone 5 mg tablet 2.5 mg PO DAILY PRN (Reason: pain) Qty: 10 RF: 0 Referrals: Quinn Villa MD [Physician] - Ba Bradley DO [Primary Care Provider] -
[2019-08-02 10:05] LABS: Bacteria Urine None Seen; WBC Urine None Seen (0-5/HPF)
[2019-08-02 10:08] LABS: Add Manual Diff / Slide Review NO; Appearance Urine UA CLEAR; Basophils Absolute Auto 100 /uL (0-100); Basophils Percent Auto 0.9 % (0-2); Bilirubin Urine UA NEGATIVE (NEGATIVE); Color Urine UA YELLOW; Eosinophils Absolute Auto 200 /uL (0-450); Eosinophils Percent Auto 2.1 % (2-4); Glucose Urine UA NEGATIVE (Negative); Hematocrit 36.1 % (36-46); Hemoglobin 12.2 g/dL (12.0-16.0); Ketones Urine UA NEGATIVE (NEGATIVE); Leukocyte Esterase Urine UA NEGATIVE (NEGATIVE); Lymphocytes Absolute Auto 2800 /uL (1100-4500); Lymphocytes Percent Auto 31.2 % (25-40); Mean Corpuscular HGB Conc 33.6 % (30-36); Mean Corpuscular Hemoglobin 30.7 PG (26-34); Mean Corpuscular Volume 91.2 fL (80-100); Monocytes Absolute Auto 600 /uL (0-900); Monocytes Percent Auto 6.7 % (3-14); Neutrophils Absolute Auto 5300 /uL (1500-7000); Neutrophils Percent Auto 59.1 % (50-75); Nitrite Urine UA NEGATIVE (Negative); Occult Blood Urine UA 3+ (Negative); Platelet Count 317 X10^3/uL (150-400); Protein Urine UA NEGATIVE (Negative); Red Blood Cell Count 3.96 X10^6/uL (4.0-5.2); Red Cell Distribution Width 14.1 % (11.6-14.8); Urobilinogen Urine UA 0.2 E.U./dL (0.2); White Blood Cell Count 8.9 X10^3/uL (4.5-11.0)
[2019-08-02 10:09] LABS: pH Urine UA 5.5 (4.5-8.0)
[2019-08-02 10:13] LABS: Alanine Aminotransferase 32 IU/L (<35); Albumin 4.4 g/dL (3.5-5.0); Albumin Globulin Ratio 1.3 (1.0-2.8); Alkaline Phosphatase 106 U/L (38-126); Aspartate Aminotransferase 36 IU/L (14-36); Bilirubin Total 0.3 mg/dL (0.2-1.3); Blood Urea Nitrogen 12 mg/dL (7-17); Calcium 9.8 mg/dL (8.4-10.2); Carbon Dioxide 22 mmol/L (22-32); Chloride 109 mmol/L (98-107); Estimated Glomerular Filt Rate > 60.0 mL/min (>60); Globulin 3.3 g/dL (1.7-4.1); Glucose 112 mg/dL (70-100); HEMOLYSIS < 15 (0-50); Lipase 48 U/L (23-300); Potassium 4.2 mmol/L (3.4-5.1); Sodium 139 mmol/L (137-145); Total Protein 7.7 g/dL (6.3-8.2)
[2019-08-02 10:15] LABS: Ur Creatinine 20 (Normal)
[2019-08-02 10:16] LABS: UR Morphine/Opiate cutoff 300 Negative (Negative); Ur Specific Gravity 1.025 (Normal); Urine Amphetamines Negative (Negative); Urine Barbiturates Negative (Negative); Urine Benzodiazepines Negative (Negative); Urine Cocaine Positive (Negative); Urine MDMA Negative (Negative); Urine Methadone Negative (Negative); Urine Methamphetamines Negative (Negative); Urine Oxycodone Negative (Negative); Urine Phencyclidine Negative (Negative); Urine Tetrahydrocannabinol Positive (Negative); Urine Tricyclic Antidepressant Negative (Negative); Urine pH 4 (Normal)
--- NOTE | 2019-08-02 10:16 | DI.US.S_ITS ---
PROCEDURE: US ABDOMEN COMPLETE INDICATIONS: RIGHT FLANK PAIN,HEMATURIA TECHNIQUE: Real-time scanning was performed of the abdominal and retroperitoneal organs, with image documentation. COMPARISON: [facility], CT, ABDOMEN/PELVIS WITH CONTRAST, 02/01/2017, 16:31. FINDINGS: Liver: Liver is normal in size and demonstrates mildly increased echogenicity when compared to the right kidney. No focal liver lesions are evident. Gallbladder: The patient has had a previous cholecystectomy. Biliary ducts: Intrahepatic bile ducts are non-dilated. Extrahepatic bile duct caliber measures 6 mm. Normal is 6-7 mm or less in diameter, or 10 mm or less post-cholecystectomy. Pancreas: Visualized portions of the pancreas are sonographically normal. Spleen: The spleen is mildly enlarged without a focal splenic lesion, measuring up to 12.9 cm in length. Kidneys: Kidneys are normal in size and echotexture. Right kidney measures 10.7 cm long; left kidney measures 12.6 cm long. No hydronephrosis or shadowing nephrolithiasis. No solid masses. Aorta: Visualized aorta is normal in caliber at less than 3 cm. Iliacs: Proximal common iliac arteries are normal in caliber at less than 2.5 cm. IVC: Intrahepatic inferior vena cava is patent. Miscellaneous: No free abdominal fluid. IMPRESSION: 1. No acute process is evident. 2. Probable mild hepatic steatosis. 3. No hydronephrosis. 4. Mild splenomegaly. Dictated by: Vignesh Redd M.D. on 08/02/2019 at 10:19 Approved by: Vignesh eRdd M.D. on 08/02/2019 at 10:21
[2019-08-02 10:21] LABS: Culture Indicated Urine Cult Not Indicated; RBC Urine >100/HPF (0-5/HPF)
[2019-08-02] MEDS: SODIUM CHLORIDE 0.9% 1,000 ML 1000 ML IV (10:31)
[2019-08-02] MEDS: diphenhydrAMINE 50 MG/ML VIAL IV (10:31)
[2019-08-02] MEDS: KETOROLAC 60 MG/2 ML VIAL 30 MG IV (10:31)
[2019-08-02 11:27] VITALS: BP 112/53; PULSE 61; RESP 20; O2SAT 99
[2019-08-02] MEDS: HYDROMORPHONE 1 MG INJ IV (11:55)
[2019-08-02 12:20] VITALS: BP 118/60; PULSE 69; RESP 20; O2SAT 100
== END 2019-08-02 12:21 | disposition home or self-care (01) ==
PROVIDERS: Emergency Provider Emergency Medicine; PCP Family Medicine
DX: R31.9 Hematuria, unspecified (principal); R10.9 Unspecified abdominal pain; G43.909 Migraine, unspecified, not intractable, without status migrainosus
CPT/HCPCS: 36415; 76700; 80053; 80305; 81001; 83690; 85025; 87086; 96361; 96374; 96375; 99284; J1170; J1200; J1885; J2765

== ENCOUNTER 2019-09-18 16:21 | Emergency (ER) | payer OTHER, SELFPAY ==
[2019-09-18 16:27] VITALS: BP 140/98; PULSE 93; RESP 18; TEMP 36.8; O2SAT 98; BMI 43.4
[2019-09-18] MEDS: SODIUM CHLORIDE 0.9% 1,000 ML 1000 ML IV (16:50)
[2019-09-18] MEDS: ONDANSETRON 4 MG/2 ML INJ IV (16:51)
[2019-09-18 16:55] LABS: Add Manual Diff / Slide Review NO; Basophils Absolute Auto 100 /uL (0-100); Basophils Percent Auto 0.6 % (0-2); Eosinophils Absolute Auto 200 /uL (0-450); Eosinophils Percent Auto 1.5 % (2-4); Hematocrit 37.8 % (36-46); Hemoglobin 13.2 g/dL (12.0-16.0); Lymphocytes Absolute Auto 2700 /uL (1100-4500); Lymphocytes Percent Auto 25.5 % (25-40); Mean Corpuscular HGB Conc 34.8 % (30-36); Mean Corpuscular Hemoglobin 31.5 PG (26-34); Mean Corpuscular Volume 90.6 fL (80-100); Monocytes Absolute Auto 500 /uL (0-900); Monocytes Percent Auto 4.3 % (3-14); Neutrophils Absolute Auto 7300 /uL (1500-7000); Neutrophils Percent Auto 68.1 % (50-75); Platelet Count 291 X10^3/uL (150-400); Red Blood Cell Count 4.18 X10^6/uL (4.0-5.2); Red Cell Distribution Width 13.4 % (11.6-14.8); White Blood Cell Count 10.6 X10^3/uL (4.5-11.0)
[2019-09-18 17:03] LABS: Prothrombin Time 11.7 SECONDS (10.1-12.7)
[2019-09-18 17:06] LABS: PTT Partial Thromboplastin Tim 34 SECONDS (26.4-36.2)
[2019-09-18 17:08] LABS: Alanine Aminotransferase 37 IU/L (<35); Albumin 4.3 g/dL (3.5-5.0); Albumin Globulin Ratio 1.2 (1.0-2.8); Alkaline Phosphatase 116 U/L (38-126); Aspartate Aminotransferase 31 IU/L (14-36); Bilirubin Total 0.3 mg/dL (0.2-1.3); Blood Urea Nitrogen 6 mg/dL (7-17); Calcium 9.5 mg/dL (8.4-10.2); Carbon Dioxide 27 mmol/L (22-32); Chloride 103 mmol/L (98-107); Estimated Glomerular Filt Rate > 60.0 mL/min (>60); Globulin 3.6 g/dL (1.7-4.1); Glucose 115 mg/dL (70-100); HEMOLYSIS < 15 (0-50); Lipase 52 U/L (23-300); Potassium 3.7 mmol/L (3.4-5.1); Sodium 139 mmol/L (137-145); Total Protein 7.9 g/dL (6.3-8.2)
--- NOTE | 2019-09-18 17:08 | ED.GENADULT ---
HPI - General Adult General Chief complaint: Abdominal Pain Stated complaint: severe upper abd pain w/ nausea,vomiting,hot/cold Time Seen by Provider: 09/18/19 16:46 Source: patient Mode of arrival: Ambulatory Limitations: no limitations History of Present Illness HPI narrative: 28-year-old female here for evaluation of right upper quadrant abdominal pain. Patient states that her symptoms started suddenly approximately 24 hours ago. She was sitting on the couch at the time. States that it has not change with urination or bowel movement. Has had a couple episodes of vomiting which has made the pain worse. She also describes like colored stools for the past couple days. She had her gallbladder removed approximately 8 years ago. She states this pain is very similar to her prior gallbladder pain which led to having the gallbladder removed. She has had a hysterectomy and her appendix removed. Has had kidney stones the past she states this does not feel like her kidney stones. Did have some nausea. This improved with nausea medication prior to my evaluation. She contacted her primary doctor told her to come to the emergency department. She has a follow-up with him on Saturday of next week. Related Data Home Medications Medication Instructions Recorded Confirmed beclomethasone dipropionate [Qvar 1 puff INHALATION Q12H PRN 08/21/18 09/12/18 RediHaler] ondansetron 4 mg PO BID 08/21/18 09/12/18 sumatriptan succinate 100 mg PO DAILY 08/21/18 09/12/18 verapamil 80 mg PO DAILY 08/21/18 09/12/18 alprazolam 1 mg PO DAILY PRN 09/18/19 09/18/19 Previous Rx's Medication Instructions Recorded fremanezumab-vfrm 225 mg/1.5 mL 225 mg SUBCUT QMONTH #1.5 ml 06/16/18 subcutaneous syringe oxycodone 5 mg PO Q4-6H PRN #10 tab 08/21/18 omeprazole 20 mg capsule,delayed 20 mg PO DAILY #30 cap 09/04/18 release oxycodone 5 mg capsule 5 mg PO Q4-6H PRN #10 cap 09/12/18 gabapentin 100 mg capsule 100 mg PO TID #90 cap 10/13/18 oxycodone 5 mg tablet 5 mg PO BEDTIME PRN #10 tab 10/13/18 oxycodone-acetaminophen 7.5 mg-325 1 tab PO Q8H PRN #10 tab 11/25/18 mg tablet oxycodone-acetaminophen 7.5 mg-325 1 tab PO Q8H PRN #30 tab 12/25/18 mg tablet oxycodone 5 mg tablet 2.5 mg PO DAILY PRN #10 tab 03/03/19 verapamil 80 mg tablet 120 mg PO QID #120 tab 03/03/19 oxycodone-acetaminophen 7.5 mg-325 1 tab PO Q8H PRN #10 tab 03/24/19 mg tablet oxycodone-acetaminophen 7.5 mg-325 1 tab PO Q8H PRN #10 tab 03/24/19 mg tablet oxycodone-acetaminophen 7.5 mg-325 1 tab PO Q8H PRN #10 tab 03/24/19 mg tablet Allergies Allergy/AdvReac Type Severity Reaction Status Date / Time buspirone [BUSPIRONE] Allergy Mild RASH ON Verified 09/18/19 16:36 FACE lamotrigine [LAMOTRIGINE] Allergy Mild RASH ON Verified 09/18/19 16:36 FACE morphine [MORPHINE] Allergy Mild HIVES,ITCHI Verified 09/18/19 16:36 NG bupropion [From WELLBUTRIN] Allergy Unknown Verified 09/18/19 16:36 hydrocodone [HYDROCODONE] AdvReac Unknown ABD PAIN Verified 09/18/19 16:36 metoclopramide [From Reglan] AdvReac Anxiety Verified 09/18/19 16:36 Review of Systems Constitutional Constitutional: Reports chills and Denies fever(s) Cardiovascular Cardiovascular: Denies chest pain and Denies dyspnea Respiratory Respiratory: Denies dyspnea Gastrointestinal Gastrointestinal: Reports abdominal pain, Reports nausea and Reports vomiting Genitourinary Genitourinary: Denies dysuria Genitourinary: Denies dysuria Musculoskeletal Musculoskeletal: Denies deformity Integumentary/Breasts Skin/Breast: Denies rash Neurologic Neurologic: Denies behavioral changes Psychiatric Psychiatric: Denies behavioral changes Hematologic/Lymphatic Hematologic/Lymphatic: Denies easy bleeding and Denies easy bruising Patient History Medical History ADHD (attention deficit hyperactivity disorder) (Chronic) Bipolar disorder (Chronic) Closed head injury with concussion (Resolved 2015) Migraines (Chronic) Neck pain on right side (Chronic 2010) Pseudoseizures (Resolved 2012) PTSD (post-traumatic stress disorder) (Chronic) Shoulder pain (Chronic 2010) Substance abuse (Resolved) Surgical History (Updated 08/02/19 @ 10:23 by Saumya Ruby DO) H/O: hysterectomy (Acute) Hx of appendectomy (Acute) Hx of cholecystectomy (Acute) Family History Mother MS (multiple sclerosis) Social History Smoking Status: Current every day smoker Smoking Status: Current every day smoker tobacco type: cigarettes alcohol intake frequency: holidays/special occasions only Substance Use Type: marijuana Exam Initial Vital Signs Initial Vital Signs: Vital Signs Temperature 98.2 F 09/18/19 16:27 Pulse Rate 93 H 09/18/19 16:27 Respiratory Rate 18 09/18/19 16:27 Blood Pressure 140/98 H 09/18/19 16:27 Pulse Oximetry 98 09/18/19 16:27 Const General: cooperative and comfortable Limitations: mental status not altered HENMT Head: normal to inspection and normocephalic Resp Effort & Inspection: normal respiratory effort Auscultation: clear to auscultation bilaterally Cardio Rate: regular rate Rhythm: regular rhythm GI Inspection: non-distended Palpation: soft, No firm and tender (Right upper quadrant) Back/Spine/Pelvis Back: No CVA tenderness Skin Lesions: no lesions Rashes: no rashes Neuro General: patient alert and patient awake Cognition: normal cognition Speech: speech normal Extrem General: normal to inspection and capillary refill normal Psych Appearance: grossly normal and well kempt Scores GCS [place] coma scale eye opening: Spontaneous [place] coma scale verbal response: Orientated [place] coma scale motor response: Obey commands [place] coma scale total score: 15 Course Orders Ordered: ED Orders 09/18/19 16:40 Complete Blood Count AUTO DIFF Stat Comprehensive Metabolic Panel Stat Lipase Stat Partial Thromboplastin Time Stat Prothrombin Time INR Stat 09/18/19 16:54 Urine Culture Stat Urine Microscopic Stat 09/18/19 17:31 CT abdomen pelvis w con Stat Discontinued Medications Hydromorphone HCl (Dilaudid) 1 mg IV NOW ONE Stop: 09/18/19 17:09 Last Admin: 09/18/19 17:37 Dose: 1 mg Documented by: SHAWN Sodium Chloride (Normal Saline 0.9%) 1,000 mls @ 1,000 mls/hr IV BOLUS ONE Stop: 09/18/19 17:48 Last Admin: 09/18/19 16:50 Dose: 1,000 mls/hr Documented by: MEAGAN Ondansetron HCl (Zofran) 4 mg IV NOW ONE Stop: 09/18/19 16:36 Last Admin: 09/18/19 16:51 Dose: 4 mg Documented by: MEAGAN Vital Signs Vital signs: Vital Signs - 8 hr 09/18/19 16:27 09/18/19 17:40 Temperature 98.2 F Pulse Rate 93 H 78 Respiratory Rate 18 16 Blood Pressure 140/98 H Blood Pressure [Left Wrist] 117/64 Pulse Oximetry 98 99 Medical Decision Making Lab Data Lab results reviewed: Yes I reviewed the patient's lab results. Result diagrams: 09/18/19 16:40 09/18/19 16:40 Labs: Lab Results 09/18/19 09/18/19 09/18/19 Range/Units 16:40 16:40 16:40 WBC 10.6 (4.5-11.0) X10^3/uL RBC 4.18 (4.0-5.2) X10^6/uL Hgb 13.2 (12.0-16.0) g/dL Hct 37.8 (36-46) % MCV 90.6 (80-100) fL MCH 31.5 (26-34) PG MCHC 34.8 (30-36) % RDW 13.4 (11.6-14.8) % Plt Count 291 (150-400) X10^3/uL Neut % (Auto) 68.1 (50-75) % Lymph % (Auto) 25.5 (25-40) % Nolan % (Auto) 4.3 (3-14) % Eos % (Auto) 1.5 L (2-4) % Baso % (Auto) 0.6 (0-2) % Neut # (Auto) 7300 H (2704-9178) /uL Lymph # (Auto) 2700 (7277-4175) /uL Nolan # (Auto) 500 (0-900) /uL Eos # (Auto) 200 (0-450) /uL Baso # (Auto) 100 (0-100) /uL PT 11.7 (10.1-12.7) SECONDS INR 1.0 (0.9-1.3) APTT 34 (26.4-36.2) SECONDS Sodium 139 (137-145) mmol/L Potassium 3.7 (3.4-5.1) mmol/L Chloride 103 (98-107) mmol/L Carbon Dioxide 27 (22-32) mmol/L BUN 6 L (7-17) mg/dL Creatinine 0.67 (0.52-1.04) mg/dL Estimated GFR > 60.0 (>60) mL/min BUN/Creatinine Ratio 9.0 (6-22) Glucose 115 H (70-100) mg/dL Calcium 9.5 (8.4-10.2) mg/dL Total Bilirubin 0.3 (0.2-1.3) mg/dL AST 31 (14-36) IU/L ALT 37 H (<35) IU/L Alkaline Phosphatase 116 (38-126) U/L Total Protein 7.9 (6.3-8.2) g/dL Albumin 4.3 (3.5-5.0) g/dL Globulin 3.6 (1.7-4.1) g/dL Albumin/Globulin Ratio 1.2 (1.0-2.8) Lipase 52 (23-300) U/L Urine RBC (0-5/HPF) Urine WBC (0-5/HPF) Ur Squamous Epith Cells (0-5/HPF) Urine Bacteria (None) Urine Mucus (Negative) Ur Culture Indicated? 09/18/19 Range/Units 16:54 WBC (4.5-11.0) X10^3/uL RBC (4.0-5.2) X10^6/uL Hgb (12.0-16.0) g/dL Hct (36-46) % MCV (80-100) fL MCH (26-34) PG MCHC (30-36) % RDW (11.6-14.8) % Plt Count (150-400) X10^3/uL Neut % (Auto) (50-75) % Lymph % (Auto) (25-40) % Nolan % (Auto) (3-14) % Eos % (Auto) (2-4) % Baso % (Auto) (0-2) % Neut # (Auto) (5494-8295) /uL Lymph # (Auto) (0357-4541) /uL Nolan # (Auto) (0-900) /uL Eos # (Auto) (0-450) /uL Baso # (Auto) (0-100) /uL PT (10.1-12.7) SECONDS INR (0.9-1.3) APTT (26.4-36.2) SECONDS Sodium (137-145) mmol/L Potassium (3.4-5.1) mmol/L Chloride (98-107) mmol/L Carbon Dioxide (22-32) mmol/L BUN (7-17) mg/dL Creatinine (0.52-1.04) mg/dL Estimated GFR (>60) mL/min BUN/Creatinine Ratio (6-22) Glucose (70-100) mg/dL Calcium (8.4-10.2) mg/dL Total Bilirubin (0.2-1.3) mg/dL AST (14-36) IU/L ALT (<35) IU/L Alkaline Phosphatase (38-126) U/L Total Protein (6.3-8.2) g/dL Albumin (3.5-5.0) g/dL Globulin (1.7-4.1) g/dL Albumin/Globulin Ratio (1.0-2.8) Lipase (23-300) U/L Urine RBC None seen (0-5/HPF) Urine WBC 5-10/hpf H (0-5/HPF) Ur Squamous Epith Cells 1-5 /hpf (0-5/HPF) Urine Bacteria Moderate (10-30) H (None) Urine Mucus 1+ H (Negative) Ur Culture Indicated? Specimen cultured Urine Dip Bedside Urine Glucose Negative Bedside Urine Bilirubin - Negative Bedside Urine Ketone - Negative Urine Specific [place] 1.015 Bedside Urine Occult Blood - Negative Bedside Urine pH 7.5 Bedside Urine Protein +/- 15 Bedside Urine Urobilinogen +/- 1mg Bedside Urine Nitrite - Negative Bedside Urine Leukocytes + 70 Esterase Point of care testing: Urine Dip Bedside Urine Glucose Negative Bedside Urine Bilirubin - Negative Bedside Urine Ketone - Negative Urine Specific [place] 1.015 Bedside Urine Occult Blood - Negative Bedside Urine pH 7.5 Bedside Urine Protein +/- 15 Bedside Urine Urobilinogen +/- 1mg Bedside Urine Nitrite - Negative Bedside Urine Leukocytes + [address] scan - abdomen/pelvis: Radiologist's Impression: [address] [address] [address] Scan Report Signed Patient: Anastasiya Vizcarra [facility]#: [id number] : 1990Acct:[id number] Age/Sex: 28 / FDate of Service: 09/18/19 Loc: ED Accession Number: [id number] Procedure: CT abdomen pelvis w con Ordering Provider: Cash Leiva D.O. PROCEDURE: CT ABDOMEN PELVIS W CON INDICATIONS: Upper abdominal pain TECHNIQUE: After the administration of intravenous contrast, 5 mm thick sections acquired from the diaphragm to the symphysis. 5 mm coronal and sagittal reformats were acquired. For radiation dose reduction, the following was used: automated exposure control, adjustment of mA and/or kV according to patient size. COMPARISON: Located Within [facility], CT, ABDOMEN/PELVIS WITH CONTRAST, 02/01/2017, 16:31. [facility], US, US PELVIC COMPLETE, 06/11/2017, 10:53. Located Within [facility], US, US ABDOMEN COMPLETE, 08/02/2019, 10:48. Located Within [facility], CT, KIDNEY/ URETER/BLADDER, 10/24/2016, 20:14. FINDINGS: Image quality: Excellent. ABDOMEN: Lung bases: Lung bases are clear. Heart size is normal. Solid organs: Liver is normal in size and enhancement. Gallbladder has been removed. Biliary system is non dilated. Pancreas enhances normally. Spleen is normal in size and enhancement. No adrenal nodules. Kidneys demonstrate normal size and enhancement, without hydronephrosis. Peritoneum and bowel: Bowel loops demonstrate normal wall thickness and caliber. No free fluid or air. Appendectomy clips are seen. Nodes and vessels: No retroperitoneal or mesenteric adenopathy by size criteria. Aorta and inferior vena cava are normal in size. Miscellaneous: A mild periumbilical hernia is seen, containing fat. PELVIS: Genitourinary: Bladder wall thickness is normal. This patient is status post hysterectomy. No adnexal masses are seen. Miscellaneous: No inguinal hernias or adenopathy. Bones: No suspicious bony lesions. No vertebral body compression fractures. Minimal dextroconvex scoliotic curvature is seen. Focal mild lower lumbar spine degenerative changes are seen. IMPRESSION: No acute abnormality is seen to explain patient's presenting symptoms. Incidental note is made of: Cholecystectomy Appendectomy Hysterectomy Fat-containing periumbilical hernia Dictated by: Merrill Humphrey M.D. on 09/18/2019 at 17:13 Approved by: Merrill Humphrey M.D. on 09/18/2019 at 17:14 MDM Narrative Medical decision making narrative: Patient reports improvement after medications. Labs unremarkable. CT scan unremarkable. Had a right upper quadrant ultrasound 2 months ago which showed no abnormal dilation. Discuss this case with Dr. Houston with general surgery was states that is unlikely as she has developed a primary common bile duct stone in 2 months. I feel we could hold on further workup for now. She will patient be safely discharged home. She has medicines at home. Already has a follow-up with her primary provider next week. She was given return precautions and follow-up instructions. She expressed understanding agreement. Discharge Plan Departure Patient Disposition: Home Clinical Impression: Abdominal pain Qualifiers: Abdominal location: right upper quadrant Qualified Code(s): R10.11 - Right upper quadrant pain Instructions: DI for Abdominal Pain-Adult Activity Restrictions/Additional Instructions: Your CT scan today showed no acute issues. Recommend you continue all of your medications as directed. Keep your scheduled medical appointments to discuss any further workup or specialty consultations. Return to the emergency department for any new symptoms Prescriptions: No Action oxycodone 5 mg capsule 5 mg PO Q4-6H PRN (Reason: pain) Qty: 10 RF: 0 alprazolam 1 mg tablet 1 mg PO DAILY PRN (Reason: Anxiety) RF: 0 verapamil 80 mg Tablet 80 mg PO DAILY RF: 0 Qvar RediHaler 40 mcg/actuation Hfa Aerosol Breath Activated 1 puff INHALATION Q12H PRN (Reason: Shortness Of Breath) RF: 0 sumatriptan succinate 100 mg tablet 100 mg PO DAILY RF: 0 ondansetron 4 mg tablet,disintegrating 4 mg PO BID RF: 0 oxycodone 5 mg tablet 5 mg PO Q4-6H PRN (Reason: pain) Qty: 10 RF: 0 [place] Syringe 225 mg/1.5 mL syringe 225 mg SUBCUT QMONTH Qty: 1.5 RF: 11 oxycodone 5 mg tablet 5 mg PO BEDTIME PRN (Reason: pain) Qty: 10 RF: 0 gabapentin 100 mg capsule 100 mg PO TID Qty: 90 RF: 2 oxycodone-acetaminophen 7.5-325 mg tablet 1 tab PO Q8H PRN (Reason: pain) Qty: 10 RF: 0 oxycodone-acetaminophen 7.5-325 mg tablet 1 tab PO Q8H PRN (Reason: pain) Qty: 30 RF: 0 omeprazole 20 mg capsule,delayed release(DR/EC) 20 mg PO DAILY Qty: 30 RF: 10 oxycodone-acetaminophen 7.5-325 mg tablet 1 tab PO Q8H PRN (Reason: pain) Qty: 10 RF: 0 oxycodone-acetaminophen 7.5-325 mg tablet 1 tab PO Q8H PRN (Reason: pain) Qty: 10 RF: 0 oxycodone-acetaminophen 7.5-325 mg tablet 1 tab PO Q8H PRN (Reason: pain) Qty: 10 RF: 0 verapamil 80 mg tablet 120 mg PO QID Qty: 120 RF: 5 oxycodone 5 mg tablet 2.5 mg PO DAILY PRN (Reason: pain) Qty: 10 RF: 0
[2019-09-18 17:30] LABS: RBC Urine None Seen (0-5/HPF)
--- NOTE | 2019-09-18 17:31 | DI.CT.S_ITS ---
PROCEDURE: CT ABDOMEN PELVIS W CON INDICATIONS: Upper abdominal pain TECHNIQUE: After the administration of intravenous contrast, 5 mm thick sections acquired from the diaphragm to the symphysis. 5 mm coronal and sagittal reformats were acquired. For radiation dose reduction, the following was used: automated exposure control, adjustment of mA and/or kV according to patient size. COMPARISON: [facility], CT, ABDOMEN/PELVIS WITH CONTRAST, 02/01/2017, 16:31. [facility], [place], US PELVIC COMPLETE, 06/11/2017, 10:53. [facility], US, US ABDOMEN COMPLETE, 08/02/2019, 10:48. [facility], CT, KIDNEY/ URETER/BLADDER, 10/24/2016, 20:14. FINDINGS: Image quality: Excellent. ABDOMEN: Lung bases: Lung bases are clear. Heart size is normal. Solid organs: Liver is normal in size and enhancement. Gallbladder has been removed. Biliary system is non dilated. Pancreas enhances normally. Spleen is normal in size and enhancement. No adrenal nodules. Kidneys demonstrate normal size and enhancement, without hydronephrosis. Peritoneum and bowel: Bowel loops demonstrate normal wall thickness and caliber. No free fluid or air. Appendectomy clips are seen. Nodes and vessels: No retroperitoneal or mesenteric adenopathy by size criteria. Aorta and inferior vena cava are normal in size. Miscellaneous: A mild periumbilical hernia is seen, containing fat. PELVIS: Genitourinary: Bladder wall thickness is normal. This patient is status post hysterectomy. No adnexal masses are seen. Miscellaneous: No inguinal hernias or adenopathy. Bones: No suspicious bony lesions. No vertebral body compression fractures. Minimal dextroconvex scoliotic curvature is seen. Focal mild lower lumbar spine degenerative changes are seen. IMPRESSION: No acute abnormality is seen to explain patient's presenting symptoms. Incidental note is made of: Cholecystectomy Appendectomy Hysterectomy Fat-containing periumbilical hernia Dictated by: Merrill Humphrey M.D. on 09/18/2019 at 17:13 Approved by: Merrill Humphrey M.D. on 09/18/2019 at 17:14
[2019-09-18 17:37] LABS: Squamous Epithelial Cell Urine 1-5 /HPF (0-5/HPF); WBC Urine 5-10/HPF (0-5/HPF)
[2019-09-18] MEDS: HYDROMORPHONE 1 MG INJ IV (17:37)
[2019-09-18 17:38] LABS: Bacteria Urine Moderate (10-30); Culture Indicated Urine Specimen Cultured; Mucus Urine 1+ (Negative)
[2019-09-18 17:40] VITALS: BP 117/64; PULSE 78; RESP 16; O2SAT 99
[2019-09-18 18:43] VITALS: BP 117/76; PULSE 78; RESP 18; O2SAT 100
== END 2019-09-18 18:44 | disposition home or self-care (01) ==
PROVIDERS: Emergency Provider Emergency Medicine
DX: R10.11 Right upper quadrant pain (principal); R11.2 Nausea with vomiting, unspecified
CPT/HCPCS: 36415; 74177; 80053; 81003; 81015; 83690; 85025; 85610; 85730; 87086; 96360; 96361; 96374; 96375; 99284; J1170; J2405

== ENCOUNTER → 2022-09-07 07:28 | Outpatient (CLI) | payer OTHER, MEDICAID, SELFPAY ==
--- NOTE | 2022-09-07 | DI.NM.S_ITS ---
PROCEDURE: NM GASTRIC EMPTYING STUDY RADIOPHARMACEUTICAL: 1 mCi Tc-99m sulfur colloid in an egg sandwich. INDICATIONS: Bariatric surgery status TECHNIQUE: A Tc-99m labeled sulfur colloid labeled egg sandwich or oatmeal was served to the patient. Anterior and posterior planar images of the abdomen were obtained at 0 minutes and 30 minutes, then at hourly intervals up to 4 hours. The patient was upright and ambulating during the interval. COMPARISON: [facility], CT, CT ABDOMEN PELVIS W CON, 09/18/2019, 17:36. FINDINGS: The stomach has normal size, morphology, and position. There is normal emptying of solid gastric contents from the stomach by visual inspection. No gastroesophageal reflux is visualized. The percentage of tracer retained at specific time points are as follows: Time point Percent gastric retention Normal range 30 minutes 46% 70% or more 1 hour 18% 30% to 90% 2 hours 6% 60% or less 3 hours 2% 30% or less 4 hours - 10% or less IMPRESSION: More rapid gastric emptying than normal. This finding could be secondary to early diabetes, cyclic vomiting syndrome, functional dyspepsia, or postoperative state. Dictated by: Rachna Chavez M.D. on 09/07/2022 at 11:49 Approved by: Rachna Chavez M.D. on 09/07/2022 at 11:52
== END ==
PROVIDERS: PCP Family Medicine; Referring Provider Family Medicine; Visit Provider Family Medicine
DX: Z98.84 Bariatric surgery status (principal)
CPT/HCPCS: 78264; A9541